=== PATIENT | female | born 1995 | race Caucasian/White ===

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

== ENCOUNTER 2017-03-08 17:27 | Inpatient (IN) | payer BC ==
[2017-03-08] MEDS ORDERED: Water For Irrigation,Sterile 1,000 ML Container IRR PRN (17:47)
[2017-03-08] MEDS ORDERED: Misoprostol 200 MCG Tab PO PRN (17:47)
[2017-03-08] MEDS ORDERED: Carboprost Tromethamine 250 MCG/1 ML Amp IM PRN (17:47)
[2017-03-08] MEDS ORDERED: Nalbuphine 10 MG/1 ML Vial IVPUSH PRN (17:47)
[2017-03-08] MEDS ORDERED: Sodium Chloride 0.9% 2.5 ML Syringe FLUSH PRN (17:47)
[2017-03-08] MEDS ORDERED: Sodium Chloride 0.9% 10 ML Syringe FLUSH PRN (17:47)
[2017-03-08] MEDS ORDERED: Ampicillin 2 GM in Sodium Chloride 0.9% 100 ML IV ONE (17:47)
[2017-03-08] MEDS ORDERED: Methylergonovine 0.2 MG/1 ML Amp IM PRN (17:47)
[2017-03-08] MEDS ORDERED: Lidocaine 1% 50 ML MDV INJECT PRN (17:47)
[2017-03-08] MEDS ORDERED: Terbutaline 1 MG/ML SDV SUBCUT PRN (17:50)
[2017-03-08] MEDS ORDERED: Misoprostol 25 MCG (1/4 of 100 MCG) Tab VAG PRN (17:50)
[2017-03-08] MEDS ORDERED: Misoprostol 25 MCG (1/4 of 100 MCG) Tab VAG SCH (18:00)
[2017-03-08] MEDS ORDERED: Oxytocin/Lactated Ringers 30 UNIT/500 ML BAG IV SCH (18:00)
[2017-03-08] MEDS ORDERED: Ondansetron 4 MG/2 ML SDV IVPUSH PRN (20:03)
[2017-03-08] MEDS: Ampicillin 1 GM in Sodium Chloride 0.9% 50 ML IV SCH (22:59)
[2017-03-09] MEDS: Butorphanol 1 MG/ML SDV IVPUSH PRN ×3 (02:43→08:56)
[2017-03-09] MEDS: Ampicillin 1 GM in Sodium Chloride 0.9% 50 ML IV SCH ×4 (02:45→14:30)
[2017-03-09] MEDS: Lactated Ringers 1,000 ML IV SCH ×2 (08:45→13:28)
[2017-03-09] MEDS ORDERED: fentaNYL 100 MCG/2 ML SDV ONE ×2 (12:54→12:57)
[2017-03-09] MEDS ORDERED: Ropivacaine 0.2% 2 MG/ML 20 ML SDV ONE (12:55)
[2017-03-09] MEDS ORDERED: Ropivacaine HCl/PF 100 ML ONE (12:57)
--- NOTE | 2017-03-09 13:47 | PCM.PREANE ---
Preanesthetic Assessment - Anesthesia/Transfusion/Family Hx Anesthesia History: Prior Anesthesia Without Reaction Family History of Anesthesia Reaction: No Transfusion History: No Prior Transfusion(s) Intubation History: Unknown - Review of Systems General: No Symptoms, Other (Labor contraction pain. Requesting info on, and placement of labor epidural.) Pulmonary: Other (History of asthma, well controlled with rescue inhaler) Cardiovascular: Other (Hx of aortic regurg, and aortic stenosis. Seen by local cardiology, cleared for epidural procedure) Gastrointestinal: No Symptoms, Other (morbidly obese with BMI of 43) Neurological: No Symptoms Other: Reports: Anxiety - Physical Assessment Pulse: 76 O2 Sat by Pulse Oximetry: 98 Respiratory Rate: 24 Blood Pressure: 128/66 Height: 5 ft 4 in Weight: 113.852 kg ASA Class: 2 Mental Status: Alert & Oriented x3 Airway Class: Mallampati = 3 Dentition: Reports: Normal Dentition Thyro-Mental Finger Breadths: 3 Mouth Opening Finger Breadths: 3 ROM/Head Extension: Other (obese neck) Lungs: Clear to Auscultation, Normal Respiratory Effort Cardiovascular: Regular Rate, Regular Rhythm - Lab Values: Laboratory Last Values WBC 7.24 K/uL (4.0-11.0) 03/08/17 18:04 RBC 4.18 M/uL (4.30-5.90) L 03/08/17 18:04 Hgb 11.4 g/dL (12.0-16.0) L 03/08/17 18:04 Hct 34.6 % (36.0-46.0) L 03/08/17 18:04 MCV 82.8 fL (80.0-98.0) 03/08/17 18:04 MCH 27.3 pg (27.0-32.0) 03/08/17 18:04 MCHC 32.9 g/dL (31.0-37.0) 03/08/17 18:04 RDW Std Deviation 45.4 fl (28.0-62.0) 03/08/17 18:04 RDW Coeff of Valerie 15 % (11.0-15.0) 03/08/17 18:04 Plt Count 205 K/uL (150-400) 03/08/17 18:04 MPV 12.10 fL (7.40-12.00) H 03/08/17 18:04 Nucleated RBC % 0.0 /100WBC 03/08/17 18:04 Nucleated RBCs # 0 K/uL 03/08/17 18:04 Blood Type O POSITIVE 03/08/17 18:04 Antibody Screen NEGATIVE 03/08/17 18:04 - Allergies Allergies/Adverse Reactions: Allergies Allergy/AdvReac Type Severity Reaction Status Date / Time No Known Allergies Allergy Verified 01/06/17 02:21 - Blood Blood Available: No - Acknowledgements Anesthesia Type Planned: Epidural Pt an Appropriate Candidate for the Planned Anesthesia: Yes Alternatives and Risks of Anesthesia Discussed w Pt/Guardian: Yes Pt/Guardian Understands and Agrees with Anesthesia Plan: Yes PreAnesthesia Questionnaire Cardiovascular History: Reports: Heart Murmur, Other (See Below) Other Cardiovascular History: aortic regurgitation Respiratory History: Reports: Asthma [employer]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: Musculoskeletal History: Reports: Back Pain, Chronic Endocrine/Metabolic History: Reports: Obesity/BMI 30+ Dermatologic History: Reports: Eczema, Psoriasis - Past Surgical History HEENT Surgical History: Reports: Other (See Below) Other HEENT Surgeries/Procedures: wisdom teeth extraction - SUBSTANCE USE Smoking Status *Q: Never Smoker Second Hand Smoke Exposure: No Recreational Drug Use History: No - CURRENT (IN HOUSE) MEDS Current Meds: Current Medications Butorphanol Tartrate (Stadol) 1 mg IVPUSH Q1H PRN PRN Reason: Pain Last Admin: 03/09/17 08:56 Dose: 1 mg Carboprost Tromethamine (Hemabate Ds) 250 mcg IM ASDIRECTED PRN PRN Reason: Post Hemorrhage Lactated Ringer's (Ringers, Lactated) 1,000 mls @ 150 mls/hr IV ASDIRECTED YASH Last Admin: 03/09/17 13:28 Dose: 150 mls/hr Oxytocin/Lactated Ringer's (Pitocin In Lr 30 Units/500 Ml) 30 unit in 500 mls @ 2 mls/hr IV TITRATE YASH; 2 MUNITS/MIN PRN Reason: Protocol Last Titration: 03/09/17 10:13 Dose: 6 munits/min, 6 mls/hr Ampicillin Sodium 1 gm/ Sodium (Chloride) 50 mls @ 100 mls/hr IV Q4H YASH Last Admin: 03/09/17 10:33 Dose: 100 mls/hr Lidocaine HCl (Xylocaine 1%) 50 ml INJECT .ONCE PRN PRN Reason: Laceration repair Methylergonovine Maleate (Methergine) 0.2 mg IM ASDIRECTED PRN PRN Reason: Post Hemorrhage Misoprostol (Cytotec) 200 mcg PO .ONCE PRN PRN Reason: Post Hemorrhage Misoprostol (Cytotec) 25 mcg VAG .ONCE YASH Last Admin: 03/08/17 18:47 Dose: 25 mcg Misoprostol (Cytotec) 25 mcg VAG Q4H PRN PRN Reason: Cervical Ripening Last Admin: 03/08/17 22:59 Dose: 25 mcg Nalbuphine HCl (Nubain) 10 mg IVPUSH Q1H PRN PRN Reason: Pain (severe 7-10) Ondansetron HCl (Zofran) 4 mg IVPUSH Q6H PRN PRN Reason: Nausea/Vomiting Last Admin: 03/09/17 05:59 Dose: 4 mg Sodium Chloride (Saline Flush) 10 ml FLUSH ASDIRECTED PRN PRN Reason: Keep Vein Open Sodium Chloride (Saline Flush) 2.5 ml FLUSH ASDIRECTED PRN PRN Reason: Keep Vein Open Sterile Water (Sterile Water For Irrigation) 1,000 ml IRR ASDIRECTED PRN PRN Reason: delivery Terbutaline Sulfate (Brethine) 0.25 mg SUBCUT ASDIRECTED PRN PRN Reason: Tacysystole Discontinued Medications Fentanyl (Sublimaze) Confirm Administered Dose 100 mcg .ROUTE .STK-MED ONE Stop: 03/09/17 12:55 Fentanyl (Sublimaze) Confirm Administered Dose 100 mcg .ROUTE .STK-MED ONE Stop: 03/09/17 12:58 Ampicillin Sodium 2 gm/ Sodium (Chloride) 100 mls @ 200 mls/hr IV ONETIME ONE Stop: 03/08/17 18:16 Last Admin: 03/08/17 18:43 Dose: 200 mls/hr Ropivacaine (Naropin 0.2%) Confirm Administered Dose 100 mls @ as directed .ROUTE .STK-MED ONE Stop: 03/09/17 12:58 Ropivacaine (Naropin 0.2%) Confirm Administered Dose 20 ml .ROUTE .STK-MED ONE Stop: 03/09/17 12:56
[2017-03-09] MEDS ORDERED: oxyCODONE 5 MG Tab PO PRN (15:24)
[2017-03-09] MEDS ORDERED: Docusate Sodium 100 MG Cap PO PRN (15:24)
[2017-03-09] MEDS ORDERED: Ibuprofen 400 MG Tab PO PRN (15:24)
[2017-03-09] MEDS ORDERED: Acetaminophen 500 MG Tab PO PRN ×2 (15:24)
[2017-03-09] MEDS ORDERED: Benzocaine/Menthol 20%-0.5% Spray 78 GM Cannister TOP PRN (15:24)
[2017-03-09] MEDS ORDERED: Bisacodyl 10 MG Supp RECTAL PRN (15:24)
[2017-03-09] MEDS ORDERED: Witch Hazel Medicated Pads 40/Jar TOP PRN (15:24)
[2017-03-09] MEDS ORDERED: Lanolin 100% Cream 7 GM Tube TOP PRN (15:24)
[2017-03-09] MEDS: Ibuprofen 800 MG Tab PO PRN (21:18)
[2017-03-10] MEDS: Ibuprofen 800 MG Tab PO PRN ×2 (05:29→11:03)
--- NOTE | 2017-03-10 08:10 | PCM.PNPP ---
<Malachi Carroll - Last Filed: 03/10/17 08:04> - General Info Date of Service: 03/10/17 Admission Dx/Problem (Free Text): 21 y.o. female, 40/1 EGA, IOL for past due dates, Subjective Update: Pt is doing well. Pain controlled with NSAIDs and tylenol. She did have a large amount of blood last night after standing up. Bleeding has decreased since then. Lochia is non foul smelling. without difficulty. Pt had no difficulty urinating. Has not had a bowel movement yet. Pt denies fever, chills , aches, shortness of breath, or chest pain. Functional Status: Reports: Pain Controlled, Tolerating Diet, Ambulating, Urinating - Review of Systems General: Reports: No Symptoms Pulmonary: Reports: No Symptoms Cardiovascular: Reports: No Symptoms Gastrointestinal: Reports: No Symptoms Genitourinary: Reports: No Symptoms - General Info Date of Service: 03/10/17 - Patient Data Vital Signs - Most Recent: Last Vital Signs Temp 36.3 C 03/10/17 04:30 Pulse 77 03/10/17 04:30 Resp 17 03/10/17 04:30 BP 128/58 L 03/10/17 04:30 Pulse Ox 96 03/10/17 04:30 Weight - Most Recent: 113.852 kg Lab Results - Last 24 Hours: Laboratory Results - last 24 hr 03/10/17 Range/Units 04:35 Hgb 9.3 L (12.0-16.0) g/dL Hct 29.4 L (36.0-46.0) % Med Orders - Current: Current Medications Acetaminophen (Tylenol Extra Strength) 500 mg PO Q4H PRN PRN Reason: Pain Acetaminophen (Tylenol Extra Strength) 1,000 mg PO Q4H PRN PRN Reason: Pain Benzocaine/Menthol (Dermoplast Pain Relief 20%-0.5% Anchor) 78 gm TOP ASDIRECTED PRN PRN Reason: Perineal Comfort Measure Last Admin: 03/09/17 21:23 Dose: 1 canister Bisacodyl (Dulcolax) 10 mg RECTAL .ONCE PRN PRN Reason: Constipation Carboprost Tromethamine (Hemabate Ds) 250 mcg IM ASDIRECTED PRN PRN Reason: Post Hemorrhage Docusate Sodium (Colace) 100 mg PO BID PRN PRN Reason: Constipation Last Admin: 03/09/17 21:18 Dose: 100 mg Emollient Ointment (Lansinoh Hpa) 0 gm TOP ASDIRECTED PRN PRN Reason: Sore Nipples Lactated Ringer's (Ringers, Lactated) 1,000 mls @ 150 mls/hr IV ASDIRECTED YASH Last Admin: 03/09/17 13:28 Dose: 150 mls/hr Oxytocin/Lactated Ringer's (Pitocin In Lr 30 Units/500 Ml) 30 unit in 500 mls @ 2 mls/hr IV TITRATE YASH; 2 MUNITS/MIN PRN Reason: Protocol Last Titration: 03/09/17 10:13 Dose: 6 munits/min, 6 mls/hr Ibuprofen (Motrin) 400 mg PO Q4H PRN PRN Reason: Pain Ibuprofen (Motrin) 800 mg PO Q6H PRN PRN Reason: Pain Last Admin: 03/10/17 05:29 Dose: 800 mg Methylergonovine Maleate (Methergine) 0.2 mg IM ASDIRECTED PRN PRN Reason: Post Hemorrhage Ondansetron HCl (Zofran) 4 mg IVPUSH Q6H PRN PRN Reason: Nausea/Vomiting Last Admin: 03/09/17 05:59 Dose: 4 mg Oxycodone HCl (Oxycodone) 5 mg PO Q2H PRN PRN Reason: Pain Sodium Chloride (Saline Flush) 2.5 ml FLUSH ASDIRECTED PRN PRN Reason: Keep Vein Open Witch Klarissa (Tucks) 1 pad TOP ASDIRECTED PRN PRN Reason: comfort care Last Admin: 03/09/17 21:22 Dose: 1 container Discontinued Medications Butorphanol Tartrate (Stadol) 1 mg IVPUSH Q1H PRN PRN Reason: Pain Last Admin: 03/09/17 08:56 Dose: 1 mg Fentanyl (Sublimaze) Confirm Administered Dose 100 mcg .ROUTE .STK-MED ONE Stop: 03/09/17 12:55 Last Admin: 03/09/17 23:56 Dose: Not Given Fentanyl (Sublimaze) Confirm Administered Dose 100 mcg .ROUTE .STK-MED ONE Stop: 03/09/17 12:58 Last Admin: 03/09/17 23:56 Dose: Not Given Ampicillin Sodium 2 gm/ Sodium (Chloride) 100 mls @ 200 mls/hr IV ONETIME ONE Stop: 03/08/17 18:16 Last Admin: 03/08/17 18:43 Dose: 200 mls/hr Ampicillin Sodium 1 gm/ Sodium (Chloride) 50 mls @ 100 mls/hr IV Q4H YASH Last Admin: 03/09/17 14:30 Dose: 100 mls/hr Ropivacaine (Naropin 0.2%) Confirm Administered Dose 100 mls @ as directed .ROUTE .STK-MED ONE Stop: 03/09/17 12:58 Last Admin: 03/09/17 23:56 Dose: Not Given Lidocaine HCl (Xylocaine 1%) 50 ml INJECT .ONCE PRN PRN Reason: Laceration repair Misoprostol (Cytotec) 200 mcg PO .ONCE PRN PRN Reason: Post Hemorrhage Misoprostol (Cytotec) 25 mcg VAG .ONCE YASH Last Admin: 03/08/17 18:47 Dose: 25 mcg Misoprostol (Cytotec) 25 mcg VAG Q4H PRN PRN Reason: Cervical Ripening Last Admin: 03/08/17 22:59 Dose: 25 mcg Nalbuphine HCl (Nubain) 10 mg IVPUSH Q1H PRN PRN Reason: Pain (severe 7-10) Ropivacaine (Naropin 0.2%) Confirm Administered Dose 20 ml .ROUTE .STK-MED ONE Stop: 03/09/17 12:56 Last Admin: 03/09/17 23:56 Dose: Not Given Sodium Chloride (Saline Flush) 10 ml FLUSH ASDIRECTED PRN PRN Reason: Keep Vein Open Sterile Water (Sterile Water For Irrigation) 1,000 ml IRR ASDIRECTED PRN PRN Reason: delivery Terbutaline Sulfate (Brethine) 0.25 mg SUBCUT ASDIRECTED PRN PRN Reason: Tacysystole - Infant Interaction Infant Disposition, : Gregory in Room with Family Infant Interaction: Holding Infant Feeding: Breastfed Infant; Nursed Well Support Person: Significant Other - Recovery Exam Fundal Tone: Firm Fundal Level: 1 Fingerbreadths Below Umbilicus Fundal Placement: Midline Lochia Amount: Small Lochia Color: Rubra/Red Perineum Description: Other (see below) Other Perinuem Description: 2nd degree laceration Episiotomy/Laceration: Approximated Bladder Status: Voiding Urinary Elimination: Voided - Exam General: Alert, Oriented Lungs: Clear to Auscultation, Normal Respiratory Effort. No: Rales, Rhonchi, Rub Cardiovascular: Regular Rate, Regular Rhythm. No: Murmurs, Gallops, Rubs GI/Abdominal Exam: Normal Bowel Sounds, Soft, Non-Tender (Uterus midling, firm, below umbilucus and mildly tender) Extremities: Normal Inspection - Problem List & Annotations (1) Vaginal delivery SNOMED Code(s): 496982079 Code(s): O80 - ENCOUNTER FOR FULL-TERM UNCOMPLICATED DELIVERY Status: Acute Current Visit: Yes - Problem List Review Problem List Initiated/Reviewed/Updated: Yes - Assessment Assessment:: 21 y.o. female, IOL for past due dates, , 2nd degree perineal laceration. Pain well controlled Urinating well well - Plan Plan:: Routine cares. Continue pain management. Continue to support frequent ambulation and . Plan for discharge today. <Mariajose Martinez - Last Filed: 03/10/17 09:43> - Patient Data Vital Signs - Most Recent: Last Vital Signs Temp 36.9 C 03/10/17 08:10 Pulse 65 03/10/17 08:10 Resp 20 03/10/17 08:10 BP 127/58 L 03/10/17 08:10 Pulse Ox 95 03/10/17 08:10 Lab Results - Last 24 Hours: Laboratory Results - last 24 hr 03/10/17 Range/Units 04:35 Hgb 9.3 L (12.0-16.0) g/dL Hct 29.4 L (36.0-46.0) % Med Orders - Current: Current Medications Acetaminophen (Tylenol Extra Strength) 500 mg PO Q4H PRN PRN Reason: Pain Acetaminophen (Tylenol Extra Strength) 1,000 mg PO Q4H PRN PRN Reason: Pain Benzocaine/Menthol (Dermoplast Pain Relief 20%-0.5% Anchor) 78 gm TOP ASDIRECTED PRN PRN Reason: Perineal Comfort Measure Last Admin: 03/09/17 21:23 Dose: 1 canister Bisacodyl (Dulcolax) 10 mg RECTAL .ONCE PRN PRN Reason: Constipation Carboprost Tromethamine (Hemabate Ds) 250 mcg IM ASDIRECTED PRN PRN Reason: Post Hemorrhage Docusate Sodium (Colace) 100 mg PO BID PRN PRN Reason: Constipation Last Admin: 03/09/17 21:18 Dose: 100 mg Emollient Ointment (Lansinoh Hpa) 0 gm TOP ASDIRECTED PRN PRN Reason: Sore Nipples Lactated Ringer's (Ringers, Lactated) 1,000 mls @ 150 mls/hr IV ASDIRECTED YASH Last Admin: 03/09/17 13:28 Dose: 150 mls/hr Oxytocin/Lactated Ringer's (Pitocin In Lr 30 Units/500 Ml) 30 unit in 500 mls @ 2 mls/hr IV TITRATE YASH; 2 MUNITS/MIN PRN Reason: Protocol Last Titration: 03/09/17 10:13 Dose: 6 munits/min, 6 mls/hr Ibuprofen (Motrin) 400 mg PO Q4H PRN PRN Reason: Pain Ibuprofen (Motrin) 800 mg PO Q6H PRN PRN Reason: Pain Last Admin: 03/10/17 05:29 Dose: 800 mg Methylergonovine Maleate (Methergine) 0.2 mg IM ASDIRECTED PRN PRN Reason: Post Hemorrhage Ondansetron HCl (Zofran) 4 mg IVPUSH Q6H PRN PRN Reason: Nausea/Vomiting Last Admin: 03/09/17 05:59 Dose: 4 mg Oxycodone HCl (Oxycodone) 5 mg PO Q2H PRN PRN Reason: Pain Sodium Chloride (Saline Flush) 2.5 ml FLUSH ASDIRECTED PRN PRN Reason: Keep Vein Open Witch Klarissa (Tucks) 1 pad TOP ASDIRECTED PRN PRN Reason: comfort care Last Admin: 03/09/17 21:22 Dose: 1 container Discontinued Medications Butorphanol Tartrate (Stadol) 1 mg IVPUSH Q1H PRN PRN Reason: Pain Last Admin: 03/09/17 08:56 Dose: 1 mg Fentanyl (Sublimaze) Confirm Administered Dose 100 mcg .ROUTE .K-MED ONE Stop: 03/09/17 12:55 Last Admin: 03/09/17 23:56 Dose: Not Given Fentanyl (Sublimaze) Confirm Administered Dose 100 mcg .ROUTE .STK-MED ONE Stop: 03/09/17 12:58 Last Admin: 03/09/17 23:56 Dose: Not Given Ampicillin Sodium 2 gm/ Sodium (Chloride) 100 mls @ 200 mls/hr IV ONETIME ONE Stop: 03/08/17 18:16 Last Admin: 03/08/17 18:43 Dose: 200 mls/hr Ampicillin Sodium 1 gm/ Sodium (Chloride) 50 mls @ 100 mls/hr IV Q4H YASH Last Admin: 03/09/17 14:30 Dose: 100 mls/hr Ropivacaine (Naropin 0.2%) Confirm Administered Dose 100 mls @ as directed .ROUTE .STK-MED ONE Stop: 03/09/17 12:58 Last Admin: 03/09/17 23:56 Dose: Not Given Lidocaine HCl (Xylocaine 1%) 50 ml INJECT .ONCE PRN PRN Reason: Laceration repair Misoprostol (Cytotec) 200 mcg PO .ONCE PRN PRN Reason: Post Hemorrhage Misoprostol (Cytotec) 25 mcg VAG .ONCE YASH Last Admin: 03/08/17 18:47 Dose: 25 mcg Misoprostol (Cytotec) 25 mcg VAG Q4H PRN PRN Reason: Cervical Ripening Last Admin: 03/08/17 22:59 Dose: 25 mcg Nalbuphine HCl (Nubain) 10 mg IVPUSH Q1H PRN PRN Reason: Pain (severe 7-10) Ropivacaine (Naropin 0.2%) Confirm Administered Dose 20 ml .ROUTE .STK-MED ONE Stop: 03/09/17 12:56 Last Admin: 03/09/17 23:56 Dose: Not Given Sodium Chloride (Saline Flush) 10 ml FLUSH ASDIRECTED PRN PRN Reason: Keep Vein Open Sterile Water (Sterile Water For Irrigation) 1,000 ml IRR ASDIRECTED PRN PRN Reason: delivery Terbutaline Sulfate (Brethine) 0.25 mg SUBCUT ASDIRECTED PRN PRN Reason: Tacysystole - My Orders Last 24 Hours: My Active Orders 03/09/17 15:24 May Shower [RC] ASDIRECTED Up ad Barbara [RC] ASDIRECTED Vital Signs [RC] PER UNIT ROUTINE Acetaminophen [Tylenol Extra Strength] 1,000 mg PO Q4H PRN Acetaminophen [Tylenol Extra Strength] 500 mg PO Q4H PRN Benzocaine/Menthol [Dermoplast Pain Relief 20%-0.5% Anchor] 78 gm TOP ASDIRECTED PRN Bisacodyl [Dulcolax] 10 mg RECTAL .ONCE PRN Docusate Sodium [Colace] 100 mg PO BID PRN Ibuprofen [Motrin] 400 mg PO Q4H PRN Ibuprofen [Motrin] 800 mg PO Q6H PRN Lanolin [Lansinoh HPA] See Dose Instructions TOP ASDIRECTED PRN Witch Klarissa [Tucks] 1 pad TOP ASDIRECTED PRN oxyCODONE 5 mg PO Q2H PRN Assess Lochia [WOMSER] Per Unit Routine Assess Uterine Involution [WOMSER] Per Unit Routine Breast Pump [WOMSER] Per Unit Routine Ice Therapy [OM.PC] Per Unit Routine Perineal Care [OM.PC] Per Unit Routine Peripheral IV Discontinue [OM.PC] Routine Sitz Bath [OM.PC] Per Unit Routine 03/09/17 Dinner Regular Diet [DIET] - Plan Plan:: Patient seen and examined--have encouraged her to stay today to work with , but she feels very strongly she wants to go home. is going well overall. Her vital signs are stable and hemoglobin is stable. Discharge instructions reviewed. Infection and bleeding warnings reviewed. [facility] up at [facility] 2 and 6 weeks. 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
--- NOTE | 2017-03-10 09:30 | PCM48HPAN ---
Post Anesthesia Note - EVALUATION WITHIN 48HRS OF ANESTHETIC Vital Signs in Normal Range: Yes Patient Participated in Evaluation: Yes Respiratory Function Stable: Yes Airway Patent: Yes Cardiovascular Function Stable: Yes Hydration Status Stable: Yes Pain Control Satisfactory: Yes Nausea and Vomiting Control Satisfactory: Yes Mental Status Recovered: Yes
--- NOTE | 2017-03-10 10:39 | OR ---
SURGEON: Mariajose Martinez M.D. DATE OF PROCEDURE: 03/09/2017 PREOPERATIVE DIAGNOSES: 1. A 40-week, 3-day intrauterine . 2. Maternal aortic valve regurgitation. 3. Group beta strep positive. POSTOPERATIVE DIAGNOSES: 1. A 40-week, 3-day intrauterine . 2. Maternal aortic valve regurgitation. 3. Group beta strep positive. PROCEDURE: Spontaneous vaginal delivery, second-degree midline laceration and repair. INSPECTOR MATERIALS AND PROCESSES: [employer], MS4. ESTIMATED BLOOD LOSS: 300 mL. ANESTHESIA: Epidural. COMPLICATIONS: None. FINDINGS: Viable female, score 7 at 1 minute, 8 at 5 minute. Weight of 3690 g. Spontaneous delivery, intact placenta, 3-vessel cord. DISPOSITION: Infant to nursery, mom in LDRP. DESCRIPTION OF PROCEDURE: Bessie is a 21-year-old, G1, P0, at 40 weeks and 3 days' gestational age, who was admitted on the evening of 03/08/2017 for scheduled induction of labor, due to term gestation with maternal history of cardiac valvular disease. She has been followed by Cardiology during the . Please see notes. The patient was admitted, routine labs drawn, had reactive NST and underwent Cytotec ripening. She is also on ampicillin prophylaxis for group beta strep. Prophylaxis, which will also help cover cardiac valve status. The patient responded nicely to the Cytotec, and the following morning, she had spontaneous rupture of membranes, clear fluid and, shortly before 0900 hours, was found to be 5 cm, 90% effaced, -1 station. She continued to labor throughout the morning hours and received IV narcotic; however, as she was starting to transition and moving closer to 8 cm, we advised against receiving further IV narcotics. As discussed in the clinic, she ultimately did undergo regional anesthesia per an epidural to help with pain control, and dissipate her pushing efforts until at the lower station, in order to decrease the amount of Valsalva against the heart. The patient progressed nicely and became comfortable with the epidural, and shortly after 1400 hours, she was found to be complete, 100% effaced, at +1 station. She was allowed to continue to labor, and shortly before 1500 hours, I was called, with patient being +3 station. heart tones remained category 1. Upon my arrival, the patient was placed in modified dorsolithotomy position and was prepped and draped in the usual aseptic manner. She continued with pushing efforts and was able to deliver infant's head atraumatically, spontaneously, followed by anterior shoulder, posterior shoulder, and remainder of the body without difficulty. The infant's oropharynx, nares bulb suctioned. Cord clamped x2 and cut. was handed off to the mother with attending nursing staff at her side. Cord arterial, cord venous, cord blood sampling was obtained. Light suprapubic pressure was applied while the placenta was delivered spontaneously intact. Vigorous fundal uterine massage was applied while 30 units of Pitocin was delivered in 500 mL IV fluid. Upon inspection of cervix, vaginal sidewalls, and perineum, there was found to be a second-degree midline laceration. This was repaired using 3-0 Polysorb in the usual fashion. Uterus remained firm. Hemostasis evident. Sponge count was correct. The patient remained in LDRP. Her initial blood pressures are normal, and she is feeling well. She denies any chest pain and shortness of breath. We will continue to monitor her closely. Sponge count and needle count were correct. Hemostasis was evident. The patient remained in LDRP. Infant to nursery. QUIQUE / KAYE /[id number]
[2017-03-10 17:02] VITALS: BP 125/58
== END 2017-03-10 18:05 | disposition home or self-care (01) | DRG 560 ==
LOC: MW.OBCHECK 17:27 → MW.OB 17:27 → MW.OBCHECK 17:47 → OBSVTOIN 03-09 14:59 → MW.OB 03-09 21:07
PROVIDERS: ADMIT Obstetrics & Gynecology; ATTEND Obstetrics & Gynecology
PROC: 10E0XZZ Delivery of Products of Conception, External Approach (ICD-10-PCS; principal; 2017-03-09)
PROC: 0KQM0ZZ Repair Perineum Muscle, Open Approach (ICD-10-PCS; 2017-03-09)
PROC: 3E0P7GC Introduction of Other Therapeutic Substance into Female Reproductive, Via Natural or Artificial Opening (ICD-10-PCS; 2017-03-09)
DX: O48.0 Post-term pregnancy (principal); O99.824 Streptococcus B carrier state complicating childbirth; I35.1 Nonrheumatic aortic (valve) insufficiency; Z3A.40 40 weeks gestation of pregnancy; Z37.0 Single live birth
CPT/HCPCS: 36415; 59025; 85014; 85018; 85027; 86850; 86900; 86901; A9270-GY; J0290; J0595; J2405; J2795; J3010; J7030; J7050; J7120

== ENCOUNTER 2020-05-30 12:46 | Emergency (ER) | payer BC ==
--- NOTE | 2020-05-30 13:39 | EDM.PDOC ---
ED HPI GENERAL MEDICAL PROBLEM - General Chief Complaint: Lower Extremity Injury/Pain Stated Complaint: POSSIBLE FOOT FRACTURE Time Seen by Provider: 05/30/20 13:24 Source of Information: Reports: Patient History Limitations: Reports: No Limitations - History of Present Illness INITIAL COMMENTS - FREE TEXT/NARRATIVE: Patient is a 25-year-old female who presents today for left foot and ankle pain. Patient states she was walking up steps when she missed one of them causing her to twist her ankle laterally. Patient is able to ambulate but with a lot of pain. Patient has pain to the back and lateral side of her foot. Patient denies any other injuries from the falls or any other complaints. L ankle and foot Pain Score (Numeric/FACES): 8 - Related Data Allergies Allergy/AdvReac Type Severity Reaction Status Date / Time No Known Allergies Allergy Verified 05/30/20 13:23 Home Meds: Home Meds . [No Known Home Meds] 05/30/20 [History] Past Medical History HEENT History: Reports: None Cardiovascular History: Reports: Heart Murmur, Other (See Below) Other Cardiovascular History: aortic regurgitation Respiratory History: Reports: Asthma [employer] History: Reports: Musculoskeletal History: Reports: Back Pain, Chronic Endocrine/Metabolic History: Reports: Obesity/BMI 30+ Dermatologic History: Reports: Eczema, Psoriasis - Past Surgical History HEENT Surgical History: Reports: Oral Surgery, Other (See Below) Other HEENT Surgeries/Procedures: wisdom teeth extraction Cardiovascular Surgical History: Reports: None Respiratory Surgical History: Reports: None Endocrine Surgical History: Reports: None Musculoskeletal Surgical History: Reports: None Dermatological Surgical History: Reports: None Social & Family History - Family History Family Medical History: No Pertinent Family History HEENT: Reports: Cataract, Glaucoma Cardiac: Reports: Heart Murmur, High Cholesterol, Hypertension, Other (See Below) Other Cardiac Family History: heart disease Respiratory: Reports: Asthma GI: Reports: Cholelithiasis : Reports: Dialysis OBGYN: Reports: Endocrine/Metabolic: Reports: Diabetes, type II Oncologic: Reports: Other (See Below) Other Oncologic Family History: ewings sarcoma - Tobacco Use Tobacco Use Status *Q: Never Tobacco User Second Hand Smoke Exposure: No - Caffeine Use Caffeine Use: Reports: None - Recreational Drug Use Recreational Drug Use: No Review of Systems - Review of Systems Review Of Systems: See Below Constitutional: Reports: No Symptoms Eyes: Reports: No Symptoms Ears: Reports: No Symptoms Nose: Reports: No Symptoms Mouth/Throat: Reports: No Symptoms Respiratory: Reports: No Symptoms Cardiovascular: Reports: No Symptoms GI/Abdominal: Reports: No Symptoms Genitourinary: Reports: No Symptoms Musculoskeletal: Reports: Foot Pain Skin: Reports: No Symptoms Neurological: Reports: No Symptoms Psychiatric: Reports: No Symptoms ED EXAM, GENERAL - Physical Exam Exam: See Below Exam Limited By: No Limitations General Appearance: Alert, No Apparent Distress Respiratory/Chest: No Respiratory Distress, Lungs Clear Cardiovascular: Normal Peripheral Pulses Peripheral Pulses: 2+: Dorsalis Pedis (L), Dorsalis Pedis (R) Extremities: Normal Inspection, Normal Range of Motion. No: Non-Tender (tenderness to dorsal lateral left foot), Joint Swelling, Limited Range of Motion, Redness Course - Vital Signs Last Recorded V/S: Last Vital Signs Temp 96.8 F L 05/30/20 13:12 Pulse 74 05/30/20 15:15 Resp 17 05/30/20 15:15 BP 123/81 05/30/20 15:15 Pulse Ox 97 05/30/20 15:15 - Orders/Labs/Meds Orders: Active Orders 24 hr Category Date Time Status DME for Discharge [COMM] Stat Oth 05/30/20 14:58 Ordered DME for Discharge [COMM] Stat Oth 05/30/20 14:59 Ordered - Re-Assessments/Exams Free Text/Narrative Re-Assessment/Exam: 05/30/20 14:59 And x-rays are negative for fractures. Patient be placed in Darrin wrap and given crutches. What you are ordering Left foot Aircast and crutches Why you are ordering it Sprain difficulty ambulating How it will benefit patient With ambulating at home How long is patient to use it 7-14 days Departure - Departure Time of Disposition: 15:01 Disposition: Home, Self-Care 01 Condition: Good Clinical Impression: Ankle sprain - Discharge Information *PRESCRIPTION DRUG MONITORING PROGRAM REVIEWED*: Not Applicable *COPY OF PRESCRIPTION DRUG MONITORING REPORT IN PATIENT MARCEL: Not Applicable Instructions: Crutch Use, Adult, [id number], Ankle Sprain, [id number] Referrals: Carolyne Fuentes DO [Primary Care Provider] - Forms: ED Department Discharge Additional Instructions: The following information is given to patients seen in the emergency department who are being discharged to home. This information is to outline your options for follow-up care. We provide all patients seen in our emergency department with a follow-up referral. The need for follow-up, as well as the timing and circumstances, are variable depending upon the specifics of your emergency department visit. If you don't have a primary care physician on staff, we will provide you with a referral. We always advise you to contact your personal physician following an emergency department visit to inform them of the circumstance of the visit and for follow-up with them and/or the need for any referrals to a consulting specialist. The emergency department will also refer you to a specialist when appropriate. This referral assures that you have the opportunity for follow-up care with a specialist. All of these measure are taken in an effort to provide you with optimal care, which includes your follow-up. Under all circumstances we always encourage you to contact your private physician who remains a resource for coordinating your care. When calling for follow-up care, please make the office aware that this follow-up is from your recent emergency room visit. If for any reason you are refused follow-up, please contact the [facility] Emergency Department at and asked to speak to the emergency department charge nurse. Please follow up with your primary care physician. If you do not have a primary care physician, see below: [facility] [address] [place] [id number] [facility] [address] [place] [id number] Follow with your primary care physician. If the pain is not better next 7 to 10 days please return to the ED for more imaging or tests. Sepsis Event Note (ED) - Evaluation Sepsis Screening Result: No Definite Risk - Focused Exam Vital Signs: Vital Signs Temp Pulse Resp BP Pulse Ox 05/30/20 15:15 74 17 123/81 97 05/30/20 13:12 96.8 F L 79 17 139/64 98 - My Orders Last 24 Hours: My Active Orders 05/30/20 14:58 DME for Discharge [COMM] Stat 05/30/20 14:59 DME for Discharge [COMM] Stat - Assessment/Plan Last 24 Hours: My Active Orders 05/30/20 14:58 DME for Discharge [COMM] Stat 05/30/20 14:59 DME for Discharge [COMM] Stat Plan: Patient is a 25-year-old female presents today for left ankle and foot pain. Patient twisted her ankle while walking up steps. Patient has some tenderness to the dorsal lateral side will obtain x-rays and reassess.
--- NOTE | 2020-05-30 14:35 | CR ---
Indication: Pain Technique: Examination consists of three views of the left ankle and three views of the left foot Comparison: None Findings: Bone mineral density is normal. There is no lytic or blastic lesion, fracture or dislocation identified. The ankle mortise and syndesmosis appear intact. There is a tiny plantar calcaneal spur. No arthritic finding. No gas within soft tissues and no radiopaque foreign body. Impression: Aside from a tiny plantar calcaneal spur, the plain film examination of the left ankle and left foot is normal Dictated by Luiz Frankel MD @ May 30 2020 2:32PM Signed by Dr. Luiz Frankel @ May 30 2020 2:35PM
[2020-05-30 15:19] VITALS: BP 123/81; PULSE 74
== END 2020-05-30 15:15 | disposition home or self-care (01) ==
LOC: MW.ED 12:46
DX: S93.402A Sprain of unspecified ligament of left ankle, initial encounter (principal); J45.909 Unspecified asthma, uncomplicated; E66.9 Obesity, unspecified; Z68.42 Body mass index [BMI] 45.0-49.9, adult; X50.1XXA Overexertion from prolonged static or awkward postures, initial encounter
CPT/HCPCS: 73610-26-LT; 73610-LT; 73630-26-LT; 73630-LT; 99283

== ENCOUNTER 2021-06-12 12:29 | Inpatient (IN) | payer BC ==
[2021-06-12] MEDS ORDERED: Sodium Chloride 0.9% 10 ML Syringe FLUSH PRN (13:01)
[2021-06-12] MEDS ORDERED: Sodium Chloride 0.9% 2.5 ML Syringe FLUSH PRN (13:01)
--- NOTE | 2021-06-12 13:06 | EDM.PDOC ---
ED HPI GENERAL MEDICAL PROBLEM - General Chief Complaint: Respiratory Problem Stated Complaint: FLU Time Seen by Provider: 06/12/21 12:37 - History of Present Illness INITIAL COMMENTS - FREE TEXT/NARRATIVE: 26-year-old female with a history of mild asthma only occasionally bothers her as well as a history of aortic insufficiency is presenting with difficulty breathing. Patient fell ill 9 days ago with cough malaise shortness of breath. Her mother had tested negative for Covid and positive for flu a she tested positive for flu a 2 days later no Covid test was done at that time. She presents today due to nausea and worsening shortness of breath. She also reports chest pain with deep breaths and significant cough. - Related Data Allergies Allergy/AdvReac Type Severity Reaction Status Date / Time No Known Allergies Allergy Verified 06/12/21 13:52 Home Meds: Home Meds . [No Known Home Meds] 05/30/20 [History] Past Medical History HEENT History: Reports: None Cardiovascular History: Reports: Heart Murmur, Other (See Below) Other Cardiovascular History: aortic regurgitation Respiratory History: Reports: Asthma [employer] History: Reports: Musculoskeletal History: Reports: Back Pain, Chronic Endocrine/Metabolic History: Reports: Obesity/BMI 30+ Dermatologic History: Reports: Eczema, Psoriasis - Past Surgical History HEENT Surgical History: Reports: Oral Surgery, Other (See Below) Respiratory Surgical History: Reports: None Endocrine Surgical History: Reports: None Social & Family History - Family History Family Medical History: No Pertinent Family History HEENT: Reports: Cataract, Glaucoma Cardiac: Reports: Heart Murmur, High Cholesterol, Hypertension, Other (See Below) Other Cardiac Family History: heart disease Respiratory: Reports: Asthma GI: Reports: Cholelithiasis : Reports: Dialysis OBGYN: Reports: Endocrine/Metabolic: Reports: Diabetes, type II Oncologic: Reports: Other (See Below) Other Oncologic Family History: ewings sarcoma - Caffeine Use Caffeine Use: Reports: None ED ROS GENERAL - Review of Systems Review Of Systems: See Below Free Text/Narrative/Comment: General: Per HPI Skin: No rash. Eyes: No vision problems. ENT: No sore throat. Neck: No neck stiffness. Respiratory: Per HPI Cardiac: Per HPI Gastrointestinal: Per HPI Urinary: No dysuria. Musculoskeletal: No myalgias/arthralgias. Neurologic: No headache. ED EXAM, GENERAL - Physical Exam Exam: See Below Free Text/Narrative:: General Appearance: No acute distress, appears comfortable Skin: No rash HEENT: Normocephalic/atraumatic, sclera anicteric, mucous membranes moist Neck: Normal range of motion Chest and Lungs: Bilateral breath sounds, clear to auscultation at the apices basilar exam compromised by body habitus Cardiovascular: Tachycardic rate regular rhythm intact distal perfusion Abdomen: Soft, non-tender Musculoskeletal: No edema or tenderness Neurologic: Awake, alert, no obvious deficits, moving all extremities Psychiatric: Appropriate, cooperative #1 Interpretation EKG Date: 06/12/21 Time: 13:04 EKG Interpretation Comments: Sinus tachycardia rate of 102 findings consistent with LVH but no acute ischemia Course - Vital Signs Last Recorded V/S: Last Vital Signs Temp 99.6 F 06/12/21 13:00 Pulse 99 06/12/21 16:28 Resp 20 06/12/21 15:09 BP 100/64 06/12/21 16:28 Pulse Ox 95 06/12/21 16:28 - Orders/Labs/Meds Orders: Active Orders 24 hr Category Date Time Status Admission Status [Patient Status] [ADT] Stat ADT 06/12/21 16:37 Active Antiembolic Devices [RC] PER UNIT ROUTINE Care 06/12/21 16:27 Active Oxygen Therapy [RC] PRN Care 06/12/21 16:26 Active RT Post Treatment Assessment [RC] Click to Edit Care 06/12/21 16:29 Active RT Pre-Treatment Assessment [RC] Click to Edit Care 06/12/21 16:29 Active Up ad Barbara [RC] ASDIRECTED Care 06/12/21 16:26 Active VTE/DVT Education [RC] PER UNIT ROUTINE Care 06/12/21 16:26 Active Vital Signs [RC] Q4H Care 06/12/21 16:26 Active Regular Diet [DIET] Diet 06/12/21 Breakfast Active CBC WITH AUTO DIFF [HEME] AM Lab 06/13/21 05:11 Ordered CBC WITH AUTO DIFF [HEME] AM Lab 06/14/21 05:11 Ordered CBC WITH AUTO DIFF [HEME] AM Lab 06/15/21 05:11 Ordered CBC WITH AUTO DIFF [HEME] AM Lab 06/16/21 05:11 Ordered CBC WITH AUTO DIFF [HEME] AM Lab 06/17/21 05:11 Ordered COMPREHENSIVE METABOLIC PN,CMP [CHEM] AM Lab 06/13/21 05:11 Ordered COMPREHENSIVE METABOLIC PN,CMP [CHEM] AM Lab 06/14/21 05:11 Ordered COMPREHENSIVE METABOLIC PN,CMP [CHEM] AM Lab 06/15/21 05:11 Ordered COMPREHENSIVE METABOLIC PN,CMP [CHEM] AM Lab 06/16/21 05:11 Ordered COMPREHENSIVE METABOLIC PN,CMP [CHEM] AM Lab 06/17/21 05:11 Ordered CRP [C-REACTIVE PROTEIN] [CHEM] Stat Lab 06/12/21 16:39 Ordered PROCALCITONIN [REF] Routine Lab 06/12/21 16:39 Ordered Albuterol/Ipratropium [Combivent Respimat] Med 06/12/21 18:00 Active 1 gm INH QID Azithromycin [Zithromax] Med 06/12/21 16:45 Active 500 mg IV Q24H Enoxaparin [Lovenox] Med 06/12/21 21:00 Active 40 mg SUBCUT Q12HR Remdesivir 100 mg Med 06/12/21 16:30 Active Sodium Chloride 0.9% [Normal Saline AdvBag] 100 ml IV Q24H Sodium Chloride 0.9% [Saline Flush] Med 06/12/21 13:01 Active 10 ml FLUSH ASDIRECTED PRN Sodium Chloride 0.9% [Saline Flush] Med 06/12/21 13:01 Active 2.5 ml FLUSH ASDIRECTED PRN cefTRIAXone [Rocephin in Dextrose,Iso-Osm 1 GM/50 ML] 1 Med 06/12/21 16:45 Active gm Premix Bag 1 bag IV Q24H dexAMETHasone Med 06/12/21 16:30 Active 6 mg PO Q24H Saline Lock Insert [OM.PC] Stat Oth 06/12/21 13:01 Ordered Sequential Compression Device [OM.PC] Per Unit Routine Oth 06/12/21 16:26 Ordered Resuscitation Status Routine Resus Stat 06/12/21 16:26 Ordered Medication Orders Albuterol/Ipratropium (Albuterol/Ipratropium 4 Gm Inhalation [place]) 1 gm INH QID YASH Azithromycin (Azithromycin 500 Mg Vial) 500 mg IV Q24H YASH Dexamethasone (Dexamethasone 4 Mg Tab) 6 mg PO Q24H YASH Enoxaparin Sodium (Enoxaparin 40 Mg/0.4 Ml Syringe) 40 mg SUBCUT Q12HR YASH Remdesivir 100 mg/ Sodium (Chloride) 100 mls @ 100 mls/hr IV Q24H YASH Stop: 06/15/21 17:29 Ceftriaxone Sodium/Dextrose 1 (gm/ Premix) 50 mls @ 100 mls/hr IV Q24H YASH Sodium Chloride (Sodium Chloride 0.9% 10 Ml Syringe) 10 ml FLUSH ASDIRECTED PRN PRN Reason: Keep Vein Open Last Admin: 06/12/21 15:08 Dose: 10 ml Documented by: SAHRA Sodium Chloride (Sodium Chloride 0.9% 2.5 Ml Syringe) 2.5 ml FLUSH ASDIRECTED PRN PRN Reason: Keep Vein Open Last Admin: 06/12/21 15:08 Dose: 2.5 ml Documented by: SAHRA Labs: Laboratory Tests 06/12/21 06/12/21 06/12/21 Range/Units 12:40 12:45 12:45 WBC 2.67 L (4.0-11.0) K/uL RBC 4.60 (4.30-5.90) M/uL Hgb 13.7 (12.0-16.0) g/dL Hct 40.4 (36.0-46.0) % MCV 87.8 (80.0-98.0) fL MCH 29.8 (27.0-32.0) pg MCHC 33.9 (31.0-37.0) g/dL RDW Std Deviation 44.7 (28.0-62.0) fl RDW Coeff of Valerie 14 (11.0-15.0) % Plt Count 200 (150-400) K/uL MPV 12.10 H (7.40-12.00) fL Neut % (Auto) 65.2 (48.0-80.0) % Lymph % (Auto) 25.8 (16.0-40.0) % Benson % (Auto) 9.0 (0.0-15.0) % Eos % (Auto) 0.0 (0.0-7.0) % Baso % (Auto) 0.0 (0.0-1.5) % Neut # (Auto) 1.7 (1.4-5.7) K/uL Lymph # (Auto) 0.7 (0.6-2.4) K/uL Benson # (Auto) 0.2 (0.0-0.8) K/uL Eos # (Auto) 0.0 (0.0-0.7) K/uL Baso # (Auto) 0.0 (0.0-0.1) K/uL Nucleated RBC % 0.0 /100WBC Nucleated RBCs # 0 K/uL Sodium 136 (136-145) mmol/L Potassium 3.6 (3.5-5.1) mmol/L Chloride 97 L (98-107) mmol/L Carbon Dioxide 26.2 (21.0-32.0) mmol/L BUN 6 L (7.0-18.0) mg/dL Creatinine 0.8 (0.6-1.0) mg/dL Est Cr Clr Drug Dosing TNP Estimated GFR (MDRD) > 60.0 ml/min Glucose 125 H (74-106) mg/dL Lactic Acid (0.4-2.0) mmol/L Calcium 8.8 (8.5-10.1) mg/dL Total Bilirubin 0.4 (0.2-1.0) mg/dL AST 201 H (15-37) IU/L ALT 316 H (14-63) IU/L Alkaline Phosphatase 65 (46-116) U/L Troponin I < 0.050 (0.000-0.056) ng/mL B-Natriuretic Peptide (<100) PG/ML Total Protein 7.5 (6.4-8.2) g/dL Albumin 3.3 L (3.4-5.0) g/dL Globulin 4.2 H (2.6-4.0) g/dL Albumin/Globulin Ratio 0.8 L (0.9-1.6) Influenza Type A RNA NEGATIVE (NEGATIVE) Influenza Type B RNA NEGATIVE (NEGATIVE) SARS-CoV-2 RNA (ELIGIO) POSITIVE H (NEGATIVE) 06/12/21 06/12/21 Range/Units 12:45 13:40 WBC (4.0-11.0) K/uL RBC (4.30-5.90) M/uL Hgb (12.0-16.0) g/dL Hct (36.0-46.0) % MCV (80.0-98.0) fL MCH (27.0-32.0) pg MCHC (31.0-37.0) g/dL RDW Std Deviation (28.0-62.0) fl RDW Coeff of Valerie (11.0-15.0) % Plt Count (150-400) K/uL MPV (7.40-12.00) fL Neut % (Auto) (48.0-80.0) % Lymph % (Auto) (16.0-40.0) % Benson % (Auto) (0.0-15.0) % Eos % (Auto) (0.0-7.0) % Baso % (Auto) (0.0-1.5) % Neut # (Auto) (1.4-5.7) K/uL Lymph # (Auto) (0.6-2.4) K/uL Benson # (Auto) (0.0-0.8) K/uL Eos # (Auto) (0.0-0.7) K/uL Baso # (Auto) (0.0-0.1) K/uL Nucleated RBC % /100WBC Nucleated RBCs # K/uL Sodium (136-145) mmol/L Potassium (3.5-5.1) mmol/L Chloride (98-107) mmol/L Carbon Dioxide (21.0-32.0) mmol/L BUN (7.0-18.0) mg/dL Creatinine (0.6-1.0) mg/dL Est Cr Clr Drug Dosing Estimated GFR (MDRD) ml/min Glucose (74-106) mg/dL Lactic Acid 1.3 (0.4-2.0) mmol/L Calcium (8.5-10.1) mg/dL Total Bilirubin (0.2-1.0) mg/dL AST (15-37) IU/L ALT (14-63) IU/L Alkaline Phosphatase (46-116) U/L Troponin I (0.000-0.056) ng/mL B-Natriuretic Peptide 8 (<100) PG/ML Total Protein (6.4-8.2) g/dL Albumin (3.4-5.0) g/dL Globulin (2.6-4.0) g/dL Albumin/Globulin Ratio (0.9-1.6) Influenza Type A RNA (NEGATIVE) Influenza Type B RNA (NEGATIVE) SARS-CoV-2 RNA (ELIGIO) (NEGATIVE) Meds: Medications Generic Name Dose Route Start Last Admin Trade Name Bryanq PRN Reason Stop Dose Admin Albuterol/Ipratropium 1 gm 06/12/21 18:00 Albuterol/Ipratropium 4 Gm Inhalation [place] INH QID YASH Azithromycin 500 mg 06/12/21 16:45 Azithromycin 500 Mg Vial IV Q24H YASH Dexamethasone 6 mg 06/12/21 16:30 Dexamethasone 4 Mg Tab PO Q24H YASH Enoxaparin Sodium 40 mg 06/12/21 21:00 Enoxaparin 40 Mg/0.4 Ml Syringe SUBCUT Q12HR YASH Remdesivir 100 mg/ Sodium 100 mls @ 100 mls/hr 06/12/21 16:30 Chloride IV 06/15/21 17:29 Q24H YASH Ceftriaxone Sodium/Dextrose 1 50 mls @ 100 mls/hr 06/12/21 16:45 gm/ Premix IV Q24H [facility] Sodium Chloride 10 ml 06/12/21 13:01 06/12/21 15:08 Sodium Chloride 0.9% 10 Ml Syringe FLUSH 10 ml ASDIRECTED PRN Administration Keep Vein Open Sodium Chloride 2.5 ml 06/12/21 13:01 06/12/21 15:08 Sodium Chloride 0.9% 2.5 Ml Syringe FLUSH 2.5 ml ASDIRECTED PRN Administration Keep Vein Open Discontinued Medications Generic Name Dose Route Start Last Admin Trade Name Freq PRN Reason Stop Dose Admin Dexamethasone 6 mg 06/12/21 14:52 06/12/21 15:07 Dexamethasone 10 Mg/Ml Sdv IVPUSH 06/12/21 14:53 6 mg ONETIME ONE Administration Remdesivir 200 mg/ Sodium 250 mls @ 250 mls/hr 06/12/21 16:25 Chloride IV 06/12/21 16:26 ONETIME ONE Iopamidol 100 ml 06/12/21 15:49 06/12/21 15:50 Iopamidol 755 Mg/Ml 500 Ml Multipack Bottle IVPUSH 06/12/21 15:50 100 ml ONETIME ONE Administration Departure - Departure Time of Disposition: 16:52 Disposition: Admitted As Inpatient 68 Condition: Fair Clinical Impression: Pneumonia due to COVID-19 virus, Hypoxia - Discharge Information *PRESCRIPTION DRUG MONITORING PROGRAM REVIEWED*: Not Applicable *COPY OF PRESCRIPTION DRUG MONITORING REPORT IN PATIENT MACREL: Not Applicable Referrals: PCP,None [Primary Care Provider] - Forms: ED Department Discharge Sepsis Event Note (ED) - Focused Exam Vital Signs: Vital Signs Temp Pulse Resp BP Pulse Ox 06/12/21 16:28 99 100/64 95 06/12/21 15:09 101 H 20 103/61 90 L 06/12/21 13:00 99.6 F 220 H 26 H 123/73 87 L - My Orders Last 24 Hours: My Active Orders 06/12/21 13:01 Sodium Chloride 0.9% [Saline Flush] 10 ml FLUSH ASDIRECTED PRN Sodium Chloride 0.9% [Saline Flush] 2.5 ml FLUSH ASDIRECTED PRN Saline Lock Insert [OM.PC] Stat - Assessment/Plan Last 24 Hours: My Active Orders 06/12/21 13:01 Sodium Chloride 0.9% [Saline Flush] 10 ml FLUSH ASDIRECTED PRN Sodium Chloride 0.9% [Saline Flush] 2.5 ml FLUSH ASDIRECTED PRN Saline Lock Insert [OM.PC] Stat Assessment:: 26-year-old female presenting with significant hypoxia and tachycardia improved somewhat on nasal cannula now on 4 L at this time. They is known Covid should be considered as well as this is a very atypical course for flu A. Relevant labs troponin and BNP to assess for any signs of right heart strain CT pulmonary angio all pending. 1615: Patient is in fact Covid positive and steroids have been ordered. Patien t's work of breathing is normal. Other labs notable for mild transaminitis. CT pulmonary angiogram is pending the patient discussed with Dr. Rosales, and we will admit for further care.
[2021-06-12 13:23] LABS: BLOOD UREA NITROGEN,BUN 6 mg/dL (7.0-18.0); CARBON DIOXIDE,CO2 26.2 mmol/L (21.0-32.0); CHLORIDE,CL 97 mmol/L (98-107); GLUCOSE RANDOM 125 mg/dL (74-106); POTASSIUM,K 3.6 mmol/L (3.5-5.1); SODIUM,NA 136 mmol/L (136-145)
--- NOTE | 2021-06-12 13:39 | CR ---
INDICATION: SOB and hypoxia. Flu shot last week. TECHNIQUE: Upright portable AP image of the chest. COMPARISON: None. FINDINGS: Shallow inspiration with crowded markings. Possible mid left lung infiltrate. No pleural effusion. Borderline cardiomegaly. Pulmonary veins not obviously engorged. No significant bony abnormality. IMPRESSION: 1. Shallow inspiration and possible mid left lung infiltrate. 2. Borderline cardiomegaly. Dictated by Nic Hope MD @ 06/12/2021 1:38:12 PM (Electronically Signed)
[2021-06-12 13:51] LABS: CORONAVIRUS COVID-19 NAA POSITIVE (NEGATIVE); INFLUENZA A NAA NEGATIVE (NEGATIVE); INFLUENZA B NAA NEGATIVE (NEGATIVE)
[2021-06-12] MEDS ORDERED: Dexamethasone 10 MG/ML SDV IVPUSH ONE (14:52)
[2021-06-12] MEDS ORDERED: Iopamidol 755 MG/ML 500 ML Multipack Bottle IVPUSH ONE (15:49)
--- NOTE | 2021-06-12 16:14 | CT ---
Indication: COVID-19 positive. Hypoxia. Technique: CT of the chest. Coronal/sagittal reconstruction images. 100 cc of Isovue 370 IV. Comparison: CT of the chest, 05/11/2017. Findings: No pulmonary emboli. The study is technically adequate. There is no evidence for right heart strain. No pulmonary infarct. Thoracic aorta is normal. No pleural or pericardial effusion. Hilar lymph nodes, potentially reactive in nature, with the largest measuring approximately 16 mm, station 11R lung windows demonstrate extensive pulmonary infiltrates, typical for COVID-19 pneumonia, with areas of nicholas consolidation, best demonstrated at the right lung base. No honeycomb formation. No traction bronchiectasis. No resorptive atelectasis or pneumothorax. Evaluation of the upper abdomen demonstrates diffuse hepatic steatosis. The liver measures up to 23.5 cm in dimension. Spleen size is at the upper limits of normal. No adrenal mass. No pancreatic mass or pancreatic duct dilation. No upper abdominal lymphadenopathy or ascites. Bone windows demonstrate no suspicious bone lesions. Alignment is maintained. Vertebral body heights are maintained on sagittal reconstruction images. Manubrium and body of the sternum are intact. Impression: 1. No pulmonary emboli. 2. No evidence for right heart strain. No pulmonary infarct. 3. Extensive pulmonary infiltrates in both lungs, with regions of nicholas consolidation. Findings are typical for COVID-19 pneumonia. Please note that all CT scans at this facility use dose modulation, iterative reconstruction, and/or weight-based dosing when appropriate to reduce radiation dose to as low as reasonably achievable. Dictated by Anthony Durham MD @ 06/12/2021 4:13:37 PM (Electronically Signed)
[2021-06-12] MEDS ORDERED: REMDESIVIR 200 MG in Sodium Chloride 0.9% 250 ML IV ONE (16:25)
[2021-06-12] MEDS ORDERED: Dexamethasone 4 MG Tab PO SCH (16:30)
[2021-06-12] MEDS ORDERED: REMDESIVIR 100 MG in Sodium Chloride 0.9% 100 ML IV SCH (16:30)
--- NOTE | 2021-06-12 16:31 | PCM.HP.2 ---
H&P History of Present Illness - General Date of Service: 06/12/21 - History of Present Illness Initial Comments - Free Text/Narative: 26 yo female with pmh of Asthma who presents with two week history of cough shortness of breath and fatigue. Her mother had recently tested positive for Influenza A and negative for COVID. Patient herself tested positive for influenza but was not tested for COVID. She took five days of tamiflu but did not feel any better. In the ED she is requiring 4 L NC to keep sats. She is positive for COVID and negative for flu. Her CXR reports mid left lung infiltrate - Related Data Allergies/Adverse Reactions: Allergies Allergy/AdvReac Type Severity Reaction Status Date / Time No Known Allergies Allergy Verified 06/12/21 13:52 Home Medications: Home Meds . 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: Musculoskeletal History: Reports: Back Pain, Chronic Endocrine/Metabolic History: Reports: Obesity/BMI 30+ Dermatologic History: Reports: Eczema, Psoriasis - Past Surgical History HEENT Surgical History: Reports: Oral Surgery, Other (See Below) Respiratory Surgical History: Reports: None Endocrine Surgical History: Reports: None Social & Family History - Family History Family Medical History: No Pertinent Family History HEENT: Reports: Cataract, Glaucoma Cardiac: Reports: Heart Murmur, High Cholesterol, Hypertension, Other (See Below) Other Cardiac Family History: heart disease Respiratory: Reports: Asthma GI: Reports: Cholelithiasis : Reports: Dialysis OBGYN: Reports: Endocrine/Metabolic: Reports: Diabetes, type II Oncologic: Reports: Other (See Below) Other Oncologic Family History: ewings sarcoma - Tobacco Use Tobacco Use Status *Q: Never Tobacco User - Caffeine Use Caffeine Use: Reports: None - Recreational Drug Use Recreational Drug Use: No H&P Review of Systems - Review of Systems: Review Of Systems: Comprehensive ROS is negative, except as noted in HPI. Exam - Exam Exam: See Below - Vital Signs Vital Signs: Last Vital Signs Temp 37.6 C 06/12/21 13:00 Pulse 99 06/12/21 16:28 Resp 20 06/12/21 15:09 BP 100/64 06/12/21 16:28 Pulse Ox 95 06/12/21 16:28 Weight: 136.078 kg - Exam General: Alert, Oriented, Other (morbid obesity) HEENT: Mucosa Moist & [place] Neck: Supple Lungs: Clear to Auscultation, Normal Respiratory Effort Cardiovascular: Regular Rate, Regular Rhythm GI/Abdominal Exam: Normal Bowel Sounds, Soft, Non-Tender Extremities: Non-Tender, Pedal Edema (+1) Skin: Warm, Dry, Intact - Patient Data Lab Results Last 24 hrs: Laboratory Results - last 24 hr 06/12/21 06/12/21 06/12/21 Range/Units 12:40 12:45 12:45 WBC 2.67 L (4.0-11.0) K/uL RBC 4.60 (4.30-5.90) M/uL Hgb 13.7 (12.0-16.0) g/dL Hct 40.4 (36.0-46.0) % MCV 87.8 (80.0-98.0) fL MCH 29.8 (27.0-32.0) pg MCHC 33.9 (31.0-37.0) g/dL RDW Std Deviation 44.7 (28.0-62.0) fl RDW Coeff of Valerie 14 (11.0-15.0) % Plt Count 200 (150-400) K/uL MPV 12.10 H (7.40-12.00) fL Neut % (Auto) 65.2 (48.0-80.0) % Lymph % (Auto) 25.8 (16.0-40.0) % [place] % (Auto) 9.0 (0.0-15.0) % Eos % (Auto) 0.0 (0.0-7.0) % Baso % (Auto) 0.0 (0.0-1.5) % Neut # (Auto) 1.7 (1.4-5.7) K/uL Lymph # (Auto) 0.7 (0.6-2.4) K/uL [place] # (Auto) 0.2 (0.0-0.8) K/uL Eos # (Auto) 0.0 (0.0-0.7) K/uL Baso # (Auto) 0.0 (0.0-0.1) K/uL Nucleated RBC % 0.0 /100WBC Nucleated RBCs # 0 K/uL Sodium 136 (136-145) mmol/L Potassium 3.6 (3.5-5.1) mmol/L Chloride 97 L (98-107) mmol/L Carbon Dioxide 26.2 (21.0-32.0) mmol/L BUN 6 L (7.0-18.0) mg/dL Creatinine 0.8 (0.6-1.0) mg/dL Est Cr Clr Drug Dosing TNP Estimated GFR (MDRD) > 60.0 ml/min Glucose 125 H (74-106) mg/dL Lactic Acid (0.4-2.0) mmol/L Calcium 8.8 (8.5-10.1) mg/dL Total Bilirubin 0.4 (0.2-1.0) mg/dL AST 201 H (15-37) IU/L ALT 316 H (14-63) IU/L Alkaline Phosphatase 65 (46-116) U/L Troponin I < 0.050 (0.000-0.056) ng/mL B-Natriuretic Peptide (<100) PG/ML Total Protein 7.5 (6.4-8.2) g/dL Albumin 3.3 L (3.4-5.0) g/dL Globulin 4.2 H (2.6-4.0) g/dL Albumin/Globulin Ratio 0.8 L (0.9-1.6) Influenza Type A RNA NEGATIVE (NEGATIVE) Influenza Type B RNA NEGATIVE (NEGATIVE) SARS-CoV-2 RNA (ELIGIO) POSITIVE H (NEGATIVE) 06/12/21 06/12/21 Range/Units 12:45 13:40 WBC (4.0-11.0) K/uL RBC (4.30-5.90) M/uL Hgb (12.0-16.0) g/dL Hct (36.0-46.0) % MCV (80.0-98.0) fL MCH (27.0-32.0) pg MCHC (31.0-37.0) g/dL RDW Std Deviation (28.0-62.0) fl RDW Coeff of Valerie (11.0-15.0) % Plt Count (150-400) K/uL MPV (7.40-12.00) fL Neut % (Auto) (48.0-80.0) % Lymph % (Auto) (16.0-40.0) % [place] % (Auto) (0.0-15.0) % Eos % (Auto) (0.0-7.0) % Baso % (Auto) (0.0-1.5) % Neut # (Auto) (1.4-5.7) K/uL Lymph # (Auto) (0.6-2.4) K/uL Millard # (Auto) (0.0-0.8) K/uL Eos # (Auto) (0.0-0.7) K/uL Baso # (Auto) (0.0-0.1) K/uL Nucleated RBC % /100WBC Nucleated RBCs # K/uL Sodium (136-145) mmol/L Potassium (3.5-5.1) mmol/L Chloride (98-107) mmol/L Carbon Dioxide (21.0-32.0) mmol/L BUN (7.0-18.0) mg/dL Creatinine (0.6-1.0) mg/dL Est Cr Clr Drug Dosing Estimated GFR (MDRD) ml/min Glucose (74-106) mg/dL Lactic Acid 1.3 (0.4-2.0) mmol/L Calcium (8.5-10.1) mg/dL Total Bilirubin (0.2-1.0) mg/dL AST (15-37) IU/L ALT (14-63) IU/L Alkaline Phosphatase (46-116) U/L Troponin I (0.000-0.056) ng/mL B-Natriuretic Peptide 8 (<100) PG/ML Total Protein (6.4-8.2) g/dL Albumin (3.4-5.0) g/dL Globulin (2.6-4.0) g/dL Albumin/Globulin Ratio (0.9-1.6) Influenza Type A RNA (NEGATIVE) Influenza Type B RNA (NEGATIVE) SARS-CoV-2 RNA (ELIGIO) (NEGATIVE) Result Diagrams: 06/12/21 12:45 06/12/21 12:45 Sepsis Event Note - Evaluation Sepsis Screening Result: Possible Sepsis Risk - Focused Exam Vital Signs: Vital Signs Temp Pulse Resp BP Pulse Ox 06/12/21 16:28 99 100/64 95 06/12/21 15:09 101 H 20 103/61 90 L 06/12/21 13:00 37.6 C 220 H 26 H 123/73 87 L - Problem List (1) Hypoxia SNOMED Code(s): 437554911 ICD Code: R09.02 - HYPOXEMIA Status: Acute Current Visit: Yes (2) Pneumonia due to COVID-19 virus SNOMED Code(s): 864995828450796489 ICD Code: U07.1 - COVID-19; J12.82 - PNEUMONIA DUE TO CORONAVIRUS DISEASE 2019 Status: Acute Current Visit: Yes Problem List Initiated/Reviewed/Updated: Yes Orders Last 24hrs: Active Orders 24 hr Category Date Time Status Antiembolic Devices [RC] PER UNIT ROUTINE Care 06/12/21 16:27 Ordered Oxygen Therapy [RC] PRN Care 06/12/21 16:26 Ordered Up ad Barbara [RC] ASDIRECTED Care 06/12/21 16:26 Ordered VTE/DVT Education [RC] PER UNIT ROUTINE Care 06/12/21 16:26 Ordered Vital Signs [RC] Q4H Care 06/12/21 16:26 Ordered Regular Diet [DIET] Diet 06/12/21 Breakfast Ordered CBC WITH AUTO DIFF [HEME] AM Lab 06/13/21 05:11 Ordered CBC WITH AUTO DIFF [HEME] AM Lab 06/14/21 05:11 Ordered CBC WITH AUTO DIFF [HEME] AM Lab 06/15/21 05:11 Ordered CBC WITH AUTO DIFF [HEME] AM Lab 06/16/21 05:11 Ordered CBC WITH AUTO DIFF [HEME] AM Lab 06/17/21 05:11 Ordered COMPREHENSIVE METABOLIC PN,CMP [CHEM] AM Lab 06/13/21 05:11 Ordered COMPREHENSIVE METABOLIC PN,CMP [CHEM] AM Lab 06/14/21 05:11 Ordered COMPREHENSIVE METABOLIC PN,CMP [CHEM] AM Lab 06/15/21 05:11 Ordered COMPREHENSIVE METABOLIC PN,CMP [CHEM] AM Lab 06/16/21 05:11 Ordered COMPREHENSIVE METABOLIC PN,CMP [CHEM] AM Lab 06/17/21 05:11 Ordered Remdesivir 100 mg Med 06/12/21 16:30 Ordered Sodium Chloride 0.9% [Normal Saline AdvBag] 100 ml IV Q24H Sodium Chloride 0.9% [Saline Flush] Med 06/12/21 13:01 Active 10 ml FLUSH ASDIRECTED PRN Sodium Chloride 0.9% [Saline Flush] Med 06/12/21 13:01 Active 2.5 ml FLUSH ASDIRECTED PRN dexAMETHasone Med 06/12/21 16:30 Ordered 6 mg PO Q24H Saline Lock Insert [OM.PC] Stat Oth 06/12/21 13:01 Ordered Sequential Compression Device [OM.PC] Per Unit Routine Oth 06/12/21 16:26 Ordered Resuscitation Status Routine Resus Stat 06/12/21 16:26 Ordered Medication Orders Dexamethasone (Dexamethasone 4 Mg Tab) 6 mg PO Q24H YASH Remdesivir 100 mg/ Sodium (Chloride) 100 mls @ 100 mls/hr IV Q24H YASH Stop: 06/15/21 17:29 Sodium Chloride (Sodium Chloride 0.9% 10 Ml Syringe) 10 ml FLUSH ASDIRECTED PRN PRN Reason: Keep Vein Open Last Admin: 06/12/21 15:08 Dose: 10 ml Documented by: SAHRA Sodium Chloride (Sodium Chloride 0.9% 2.5 Ml Syringe) 2.5 ml FLUSH ASDIRECTED PRN PRN Reason: Keep Vein Open Last Admin: 06/12/21 15:08 Dose: 2.5 ml Documented by: SAHRA Assessment/Plan Comment:: 26 yo female admitted for COVID-19 with hypoxia and possible recent coinfection with influenza Hypoxia: on 5 L NC COVID-19: treating with remdesivir and dexamethasone Chest angio is pending
[2021-06-12] MEDS ORDERED: cefTRIAXone 1 GM in Premix Bag 1 BAG IV SCH (16:45)
[2021-06-12] MEDS ORDERED: Azithromycin 500 MG Vial IV SCH (16:45)
[2021-06-12] MEDS ORDERED: Albuterol/Ipratropium 4 GM Inhalation Spray INH SCH (18:00)
[2021-06-12] MEDS ORDERED: Albuterol/Ipratropium 4 GM Inhalation Spray INH ONE ×2 (22:15)
[2021-06-12] MEDS: Dexamethasone 4 MG Tab PO SCH (22:19)
[2021-06-12] MEDS: Enoxaparin 40 MG/0.4 ML Syringe SUBCUT SCH (22:19)
[2021-06-12] MEDS: cefTRIAXone 1 GM in Premix Bag 1 BAG IV SCH (22:19)
[2021-06-12] MEDS ORDERED: Azithromycin 500 MG in Sodium Chloride 0.9% 250 ML IV SCH (22:30)
[2021-06-13] MEDS: Albuterol/Ipratropium 4 GM Inhalation Spray INH SCH ×5 (02:20→23:20)
[2021-06-13 08:33] LABS: BLOOD UREA NITROGEN,BUN 7 mg/dL (7.0-18.0); CHLORIDE,CL 101 mmol/L (98-107); GLUCOSE RANDOM 136 mg/dL (74-106); POTASSIUM,K 3.4 mmol/L (3.5-5.1); SODIUM,NA 138 mmol/L (136-145)
[2021-06-13] MEDS: Enoxaparin 40 MG/0.4 ML Syringe SUBCUT SCH ×2 (09:38→21:08)
[2021-06-13] MEDS: Acetaminophen 325 MG Tab PO PRN (13:59)
[2021-06-13] MEDS ORDERED: Doxycycline 100 MG in Sodium Chloride 0.9% 100 ML IV SCH (14:00)
--- NOTE | 2021-06-13 14:22 | PCM.PN ---
- General Info Date of Service: 06/13/21 - Review of Systems Systems Review Comment:: reports shortness of breath, cough - Patient Data Vitals - Most Recent: Last Vital Signs Temp 36.2 C 06/13/21 09:00 Pulse 80 06/13/21 09:00 Resp 20 06/13/21 09:00 BP 120/49 L 06/13/21 09:00 Pulse Ox 90 L 06/13/21 09:00 Weight - Most Recent: 132.177 kg I&O - Last 24 Hours: Intake & Output 06/12/21 06/13/21 06/13/21 22:59 06:59 14:59 Intake Total 737 Balance 737 Lab Results Last 24 Hours: Laboratory Results - last 24 hr 06/12/21 06/12/21 06/12/21 Range/Units 12:40 12:45 12:45 WBC (4.0-11.0) K/uL RBC (4.30-5.90) M/uL Hgb (12.0-16.0) g/dL Hct (36.0-46.0) % MCV (80.0-98.0) fL MCH (27.0-32.0) pg MCHC (31.0-37.0) g/dL RDW Std Deviation (28.0-62.0) fl RDW Coeff of Valerie (11.0-15.0) % Plt Count (150-400) K/uL MPV (7.40-12.00) fL Neut % (Auto) (48.0-80.0) % Lymph % (Auto) (16.0-40.0) % [place] % (Auto) (0.0-15.0) % Eos % (Auto) (0.0-7.0) % Baso % (Auto) (0.0-1.5) % Neut # (Auto) (1.4-5.7) K/uL Lymph # (Auto) (0.6-2.4) K/uL [place] # (Auto) (0.0-0.8) K/uL Eos # (Auto) (0.0-0.7) K/uL Baso # (Auto) (0.0-0.1) K/uL Nucleated RBC % /100WBC Nucleated RBCs # K/uL Sodium (136-145) mmol/L Potassium (3.5-5.1) mmol/L Chloride (98-107) mmol/L Carbon Dioxide (21.0-32.0) mmol/L BUN (7.0-18.0) mg/dL Creatinine (0.6-1.0) mg/dL Est Cr Clr Drug Dosing mL/min Estimated GFR (MDRD) ml/min Glucose (74-106) mg/dL Lactic Acid (0.4-2.0) mmol/L Calcium (8.5-10.1) mg/dL Total Bilirubin (0.2-1.0) mg/dL AST (15-37) IU/L ALT (14-63) IU/L Alkaline Phosphatase (46-116) U/L C-Reactive Protein 6.60 H (0.00-0.90) mg/dL B-Natriuretic Peptide 8 (<100) PG/ML Total Protein (6.4-8.2) g/dL Albumin (3.4-5.0) g/dL Globulin (2.6-4.0) g/dL Albumin/Globulin Ratio (0.9-1.6) SARS-CoV-2 RNA (ELIGIO) POSITIVE H (NEGATIVE) 06/12/21 06/13/21 06/13/21 Range/Units 13:40 06:39 06:39 WBC 2.13 L (4.0-11.0) K/uL RBC 4.40 (4.30-5.90) M/uL Hgb 12.8 (12.0-16.0) g/dL Hct 39.0 (36.0-46.0) % MCV 88.6 (80.0-98.0) fL MCH 29.1 (27.0-32.0) pg MCHC 32.8 (31.0-37.0) g/dL RDW Std Deviation 45.3 (28.0-62.0) fl RDW Coeff of Valerie 14 (11.0-15.0) % Plt Count 225 (150-400) K/uL MPV 12.40 H (7.40-12.00) fL Neut % (Auto) 58.2 (48.0-80.0) % Lymph % (Auto) 29.1 (16.0-40.0) % [place] % (Auto) 12.2 (0.0-15.0) % Eos % (Auto) 0.0 (0.0-7.0) % Baso % (Auto) 0.5 (0.0-1.5) % Neut # (Auto) 1.2 L (1.4-5.7) K/uL Lymph # (Auto) 0.6 (0.6-2.4) K/uL [place] # (Auto) 0.3 (0.0-0.8) K/uL Eos # (Auto) 0.0 (0.0-0.7) K/uL Baso # (Auto) 0.0 (0.0-0.1) K/uL Nucleated RBC % 0.0 /100WBC Nucleated RBCs # 0 K/uL Sodium 138 (136-145) mmol/L Potassium 3.4 L (3.5-5.1) mmol/L Chloride 101 (98-107) mmol/L Carbon Dioxide 26.0 (21.0-32.0) mmol/L BUN 7 (7.0-18.0) mg/dL Creatinine 0.6 (0.6-1.0) mg/dL Est Cr Clr Drug Dosing 124.85 mL/min Estimated GFR (MDRD) > 60.0 ml/min Glucose 136 H (74-106) mg/dL Lactic Acid 1.3 (0.4-2.0) mmol/L Calcium 8.2 L (8.5-10.1) mg/dL Total Bilirubin 0.4 (0.2-1.0) mg/dL AST 125 H (15-37) IU/L ALT 248 H (14-63) IU/L Alkaline Phosphatase 49 (46-116) U/L C-Reactive Protein (0.00-0.90) mg/dL B-Natriuretic Peptide (<100) PG/ML Total Protein 6.9 (6.4-8.2) g/dL Albumin 2.9 L (3.4-5.0) g/dL Globulin 4.0 (2.6-4.0) g/dL Albumin/Globulin Ratio 0.7 L (0.9-1.6) SARS-CoV-2 RNA (ELIGIO) (NEGATIVE) Med Orders - Current: Current Medications Acetaminophen (Acetaminophen 325 Mg Tab) 650 mg PO Q6H PRN PRN Reason: Pain Last Admin: 06/13/21 13:59 Dose: 650 mg Documented by: Albuterol/Ipratropium (Albuterol/Ipratropium 4 Gm Inhalation [place]) 1 gm INH QID [facility] Last Admin: 06/13/21 12:34 Dose: 1 mdi Documented by: Dexamethasone (Dexamethasone 4 Mg Tab) 6 mg PO Q24H [facility] Last Admin: 06/12/21 22:19 Dose: 6 mg Documented by: Enoxaparin Sodium (Enoxaparin 40 Mg/0.4 Ml Syringe) 40 mg SUBCUT Q12HR [facility] Last Admin: 06/13/21 09:38 Dose: 40 mg Documented by: Ceftriaxone Sodium/Dextrose 1 (gm/ Premix) 50 mls @ 100 mls/hr IV Q24H [facility] Last Admin: 06/12/21 22:19 Dose: 100 mls/hr Documented by: Remdesivir 100 mg/ Sodium (Chloride) 100 mls @ 100 mls/hr IV Q24H [facility] Stop: 06/16/21 21:29 Doxycycline Hyclate 100 mg/ (Sodium Chloride) 100 mls @ 100 mls/hr IV Q12H [facility] Last Admin: 06/13/21 13:59 Dose: 100 mls/hr Documented by: Sodium Chloride (Sodium Chloride 0.9% 10 Ml Syringe) 10 ml FLUSH ASDIRECTED PRN PRN Reason: Keep Vein Open Last Admin: 06/12/21 15:08 Dose: 10 ml Documented by: Sodium Chloride (Sodium Chloride 0.9% 2.5 Ml Syringe) 2.5 ml FLUSH ASDIRECTED PRN PRN Reason: Keep Vein Open Last Admin: 06/12/21 15:08 Dose: 2.5 ml Documented by: Discontinued Medications Albuterol/Ipratropium (Albuterol/Ipratropium 4 Gm Inhalation [place]) 1 gm INH QID [facility] Last Admin: 06/13/21 00:59 Dose: Not Given Documented by: Albuterol/Ipratropium (Albuterol/Ipratropium 4 Gm Inhalation [place]) 1 gm INH ONETIME ONE Stop: 06/12/21 22:16 Albuterol/Ipratropium (Albuterol/Ipratropium 4 Gm Inhalation [place]) 0 gm INH ONETIME ONE Stop: 06/12/21 22:16 Last Admin: 06/12/21 22:19 Dose: 1 puff Documented by: Azithromycin (Azithromycin 500 Mg Vial) 500 mg IV Q24H [facility] Last Admin: 06/13/21 00:59 Dose: Not Given Documented by: Dexamethasone (Dexamethasone 10 Mg/Ml Sdv) 6 mg IVPUSH ONETIME ONE Stop: 06/12/21 14:53 Last Admin: 06/12/21 15:07 Dose: 6 mg Documented by: Dexamethasone (Dexamethasone 4 Mg Tab) 6 mg PO Q24H YASH Last Admin: 06/13/21 00:57 Dose: Not Given Documented by: Remdesivir 100 mg/ Sodium (Chloride) 100 mls @ 100 mls/hr IV Q24H [facility] Stop: 06/15/21 17:29 Last Admin: 06/13/21 00:58 Dose: Not Given Documented by: Remdesivir 200 mg/ Sodium (Chloride) 250 mls @ 250 mls/hr IV ONETIME ONE Stop: 06/12/21 16:26 Last Admin: 06/12/21 19:40 Dose: 250 mls/hr Documented by: Ceftriaxone Sodium/Dextrose 1 (gm/ Premix) 50 mls @ 100 mls/hr IV Q24H [facility] Last Admin: 06/13/21 00:58 Dose: Not Given Documented by: Azithromycin 500 mg/ Sodium (Chloride) 250 mls @ 250 mls/hr IV Q24H [facility] Last Admin: 06/12/21 22:20 Dose: 250 mls/hr Documented by: Iopamidol (Iopamidol 755 Mg/Ml 500 Ml Multipack Bottle) 100 ml IVPUSH ONETIME ONE Stop: 06/12/21 15:50 Last Admin: 06/12/21 15:50 Dose: 100 ml Documented by: - Exam General: Alert, Oriented Neck: Supple Lungs: Clear to Auscultation, Normal Respiratory Effort Cardiovascular: Regular Rate, Regular Rhythm GI/Abdominal Exam: Soft, Non-Tender, No Distention Extremities: Non-Tender, No Pedal Edema Skin: Warm, Dry, Intact Neurological: No New Focal Deficit - Patient Data Lab Results Last 24 hrs: Laboratory Results - last 24 hr 06/12/21 06/12/21 06/12/21 Range/Units 12:40 12:45 12:45 WBC (4.0-11.0) K/uL RBC (4.30-5.90) M/uL Hgb (12.0-16.0) g/dL Hct (36.0-46.0) % MCV (80.0-98.0) fL MCH (27.0-32.0) pg MCHC (31.0-37.0) g/dL RDW Std Deviation (28.0-62.0) fl RDW Coeff of Valerie (11.0-15.0) % Plt Count (150-400) K/uL MPV (7.40-12.00) fL Neut % (Auto) (48.0-80.0) % Lymph % (Auto) (16.0-40.0) % [place] % (Auto) (0.0-15.0) % Eos % (Auto) (0.0-7.0) % Baso % (Auto) (0.0-1.5) % Neut # (Auto) (1.4-5.7) K/uL Lymph # (Auto) (0.6-2.4) K/uL [place] # (Auto) (0.0-0.8) K/uL Eos # (Auto) (0.0-0.7) K/uL Baso # (Auto) (0.0-0.1) K/uL Nucleated RBC % /100WBC Nucleated RBCs # K/uL Sodium (136-145) mmol/L Potassium (3.5-5.1) mmol/L Chloride (98-107) mmol/L Carbon Dioxide (21.0-32.0) mmol/L BUN (7.0-18.0) mg/dL Creatinine (0.6-1.0) mg/dL Est Cr Clr Drug Dosing mL/min Estimated GFR (MDRD) ml/min Glucose (74-106) mg/dL Lactic Acid (0.4-2.0) mmol/L Calcium (8.5-10.1) mg/dL Total Bilirubin (0.2-1.0) mg/dL AST (15-37) IU/L ALT (14-63) IU/L Alkaline Phosphatase (46-116) U/L C-Reactive Protein 6.60 H (0.00-0.90) mg/dL B-Natriuretic Peptide 8 (<100) PG/ML Total Protein (6.4-8.2) g/dL Albumin (3.4-5.0) g/dL Globulin (2.6-4.0) g/dL Albumin/Globulin Ratio (0.9-1.6) SARS-CoV-2 RNA (ELIGIO) POSITIVE H (NEGATIVE) 06/12/21 06/13/21 06/13/21 Range/Units 13:40 06:39 06:39 WBC 2.13 L (4.0-11.0) K/uL RBC 4.40 (4.30-5.90) M/uL Hgb 12.8 (12.0-16.0) g/dL Hct 39.0 (36.0-46.0) % MCV 88.6 (80.0-98.0) fL MCH 29.1 (27.0-32.0) pg MCHC 32.8 (31.0-37.0) g/dL RDW Std Deviation 45.3 (28.0-62.0) fl RDW Coeff of Valerie 14 (11.0-15.0) % Plt Count 225 (150-400) K/uL MPV 12.40 H (7.40-12.00) fL Neut % (Auto) 58.2 (48.0-80.0) % Lymph % (Auto) 29.1 (16.0-40.0) % [place] % (Auto) 12.2 (0.0-15.0) % Eos % (Auto) 0.0 (0.0-7.0) % Baso % (Auto) 0.5 (0.0-1.5) % Neut # (Auto) 1.2 L (1.4-5.7) K/uL Lymph # (Auto) 0.6 (0.6-2.4) K/uL [place] # (Auto) 0.3 (0.0-0.8) K/uL Eos # (Auto) 0.0 (0.0-0.7) K/uL Baso # (Auto) 0.0 (0.0-0.1) K/uL Nucleated RBC % 0.0 /100WBC Nucleated RBCs # 0 K/uL Sodium 138 (136-145) mmol/L Potassium 3.4 L (3.5-5.1) mmol/L Chloride 101 (98-107) mmol/L Carbon Dioxide 26.0 (21.0-32.0) mmol/L BUN 7 (7.0-18.0) mg/dL Creatinine 0.6 (0.6-1.0) mg/dL Est Cr Clr Drug Dosing 124.85 mL/min Estimated GFR (MDRD) > 60.0 ml/min Glucose 136 H (74-106) mg/dL Lactic Acid 1.3 (0.4-2.0) mmol/L Calcium 8.2 L (8.5-10.1) mg/dL Total Bilirubin 0.4 (0.2-1.0) mg/dL AST 125 H (15-37) IU/L ALT 248 H (14-63) IU/L Alkaline Phosphatase 49 (46-116) U/L C-Reactive Protein (0.00-0.90) mg/dL B-Natriuretic Peptide (<100) PG/ML Total Protein 6.9 (6.4-8.2) g/dL Albumin 2.9 L (3.4-5.0) g/dL Globulin 4.0 (2.6-4.0) g/dL Albumin/Globulin Ratio 0.7 L (0.9-1.6) SARS-CoV-2 RNA (ELIGIO) (NEGATIVE) Result Diagrams: 06/13/21 06:39 06/13/21 06:39 Sepsis Event Note - Evaluation Sepsis Screening Result: No Definite Risk - Focused Exam Vital Signs: Vital Signs Temp Pulse Resp BP Pulse Ox 06/13/21 09:00 36.2 C 80 20 120/49 L 90 L 06/13/21 05:00 35.9 C L 80 16 100/50 L 90 L - Problem List & Annotations (1) Hypoxia SNOMED Code(s): 280235607 Code(s): R09.02 - HYPOXEMIA Status: Acute Current Visit: Yes (2) Pneumonia due to COVID-19 virus SNOMED Code(s): 852141666063442894 Code(s): U07.1 - COVID-19; J12.82 - PNEUMONIA DUE TO CORONAVIRUS DISEASE 2019 Status: Acute Current Visit: Yes - Problem List Review Problem List Initiated/Reviewed/Updated: Yes - My Orders Last 24 Hours: My Active Orders 06/12/21 16:26 Oxygen Therapy [RC] PRN VTE/DVT Education [RC] PER UNIT ROUTINE Vital Signs [RC] Q4H Sequential Compression Device [OM.PC] Per Unit Routine Resuscitation Status Routine 06/12/21 16:27 Antiembolic Devices [RC] PER UNIT ROUTINE 06/12/21 16:29 RT Post Treatment Assessment [RC] Click to Edit RT Pre-Treatment Assessment [RC] Click to Edit 06/12/21 16:37 Admission Status [Patient Status] [ADT] Stat 06/12/21 17:26 PROCALCITONIN [REF] Routine 06/12/21 21:00 Enoxaparin [Lovenox] 40 mg SUBCUT Q12HR 06/12/21 22:00 cefTRIAXone [Rocephin in Dextrose,Iso-Osm 1 GM/50 ML] 1 gm Premix Bag 1 bag IV Q24H dexAMETHasone 6 mg PO Q24H 06/13/21 02:00 Albuterol/Ipratropium [Combivent Respimat] 1 gm INH QID 06/13/21 13:08 Acetaminophen [TylenoL] 650 mg PO Q6H PRN 06/13/21 14:00 Doxycycline [Vibramycin] 100 mg Sodium Chloride 0.9% [Normal Saline AdvBag] 100 ml IV Q12H 06/13/21 20:30 Remdesivir 100 mg Sodium Chloride 0.9% [Normal Saline AdvBag] 100 ml IV Q24H 06/14/21 05:11 CBC WITH AUTO DIFF [HEME] AM COMPREHENSIVE METABOLIC PN,CMP [CHEM] AM 06/15/21 05:11 CBC WITH AUTO DIFF [HEME] AM COMPREHENSIVE METABOLIC PN,CMP [CHEM] AM 06/16/21 05:11 CBC WITH AUTO DIFF [HEME] AM COMPREHENSIVE METABOLIC PN,CMP [CHEM] AM 06/17/21 05:11 CBC WITH AUTO DIFF [HEME] AM COMPREHENSIVE METABOLIC PN,CMP [CHEM] AM - Plan Plan:: 26 yo female admitted for COVID-19 with hypoxia and possible recent coinfection with influenza Hypoxia: on 10 L NC COVID-19: continue remdesivir and dexamethasone also on Rocephin and azithromycin, but developed rash on azithromycin so will switch to doxycycline lovenox for DVT prophylaxis
[2021-06-13] MEDS ORDERED: Potassium Chloride 20 MEQ Tab.ER PO ONE (14:24)
[2021-06-13] MEDS: REMDESIVIR 100 MG in Sodium Chloride 0.9% 100 ML IV SCH (21:07)
[2021-06-13] MEDS: cefTRIAXone 1 GM in Premix Bag 1 BAG IV SCH (21:07)
[2021-06-13] MEDS: Dexamethasone 4 MG Tab PO SCH (21:07)
[2021-06-13] MEDS: Melatonin 3 MG Tab PO PRN (23:20)
[2021-06-14] MEDS: Albuterol/Ipratropium 4 GM Inhalation Spray INH SCH ×4 (05:14→23:20)
[2021-06-14 07:04] LABS: BLOOD UREA NITROGEN,BUN 9 mg/dL (7.0-18.0); CARBON DIOXIDE,CO2 28.1 mmol/L (21.0-32.0); CHLORIDE,CL 105 mmol/L (98-107); GLUCOSE RANDOM 141 mg/dL (74-106); POTASSIUM,K 4.2 mmol/L (3.5-5.1); SODIUM,NA 142 mmol/L (136-145)
[2021-06-14] MEDS: Enoxaparin 40 MG/0.4 ML Syringe SUBCUT SCH ×2 (09:52→20:18)
[2021-06-14] MEDS: Acetaminophen 325 MG Tab PO PRN ×2 (10:05→20:19)
--- NOTE | 2021-06-14 13:59 | PCM.PN ---
- General Info Date of Service: 06/14/21 - Review of Systems Systems Review Comment:: reports shortness of breath at rest and exertion - Patient Data Vitals - Most Recent: Last Vital Signs Temp 37 C 06/14/21 12:10 Pulse 96 06/14/21 12:10 Resp 19 06/14/21 12:10 BP 110/56 L 06/14/21 12:10 Pulse Ox 87 L 06/14/21 12:10 Weight - Most Recent: 132.177 kg I&O - Last 24 Hours: Intake & Output 06/13/21 06/14/21 06/14/21 22:59 06:59 14:59 Intake Total 2500 1290 Output Total 1050 Balance 1450 1290 Lab Results Last 24 Hours: Laboratory Results - last 24 hr 06/12/21 06/14/21 06/14/21 Range/Units 17:26 06:24 06:24 WBC 5.49 (4.0-11.0) K/uL RBC 4.33 (4.30-5.90) M/uL Hgb 13.1 (12.0-16.0) g/dL Hct 38.8 (36.0-46.0) % MCV 89.6 (80.0-98.0) fL MCH 30.3 (27.0-32.0) pg MCHC 33.8 (31.0-37.0) g/dL RDW Std Deviation 45.8 (28.0-62.0) fl RDW Coeff of Valerie 14 (11.0-15.0) % Plt Count 257 (150-400) K/uL MPV 11.90 (7.40-12.00) fL Neut % (Auto) 80.2 H (48.0-80.0) % Lymph % (Auto) 10.0 L (16.0-40.0) % [place] % (Auto) 9.8 (0.0-15.0) % Eos % (Auto) 0.0 (0.0-7.0) % Baso % (Auto) 0.0 (0.0-1.5) % Neut # (Auto) 4.4 (1.4-5.7) K/uL Lymph # (Auto) 0.6 (0.6-2.4) K/uL [place] # (Auto) 0.5 (0.0-0.8) K/uL Eos # (Auto) 0.0 (0.0-0.7) K/uL Baso # (Auto) 0.0 (0.0-0.1) K/uL Nucleated RBC % 0.0 /100WBC Nucleated RBCs # 0 K/uL Sodium 142 (136-145) mmol/L Potassium 4.2 (3.5-5.1) mmol/L Chloride 105 (98-107) mmol/L Carbon Dioxide 28.1 (21.0-32.0) mmol/L BUN 9 (7.0-18.0) mg/dL Creatinine 0.7 (0.6-1.0) mg/dL Est Cr Clr Drug Dosing 107.01 mL/min Estimated GFR (MDRD) > 60.0 ml/min Glucose 141 H (74-106) mg/dL Calcium 8.3 L (8.5-10.1) mg/dL Total Bilirubin 0.4 (0.2-1.0) mg/dL AST 88 H (15-37) IU/L ALT 204 H (14-63) IU/L Alkaline Phosphatase 49 (46-116) U/L Total Protein 6.2 L (6.4-8.2) g/dL Albumin 2.8 L (3.4-5.0) g/dL Globulin 3.4 (2.6-4.0) g/dL Albumin/Globulin Ratio 0.8 L (0.9-1.6) Procalcitonin 0.19 H ng/mL Med Orders - Current: Current Medications Acetaminophen (Acetaminophen 325 Mg Tab) 650 mg PO Q6H PRN PRN Reason: Pain Last Admin: 06/14/21 10:05 Dose: 650 mg Documented by: Albuterol/Ipratropium (Albuterol/Ipratropium 4 Gm Inhalation [place]) 1 gm INH QID [facility] Last Admin: 06/14/21 11:44 Dose: 1 mdi Documented by: Dexamethasone (Dexamethasone 4 Mg Tab) 6 mg PO Q24H [facility] Last Admin: 06/13/21 21:07 Dose: 6 mg Documented by: Enoxaparin Sodium (Enoxaparin 40 Mg/0.4 Ml Syringe) 40 mg SUBCUT Q12HR [facility] Last Admin: 06/14/21 09:52 Dose: 40 mg Documented by: Ceftriaxone Sodium/Dextrose 1 (gm/ Premix) 50 mls @ 100 mls/hr IV Q24H YASH Last Admin: 06/13/21 21:07 Dose: 100 mls/hr Documented by: Remdesivir 100 mg/ Sodium (Chloride) 100 mls @ 100 mls/hr IV Q24H YASH Stop: 06/16/21 21:29 Last Admin: 06/13/21 21:07 Dose: 100 mls/hr Documented by: Melatonin (Melatonin 3 Mg Tab) 6 mg PO BEDTIME PRN PRN Reason: Sleep Last Admin: 06/13/21 23:20 Dose: 6 mg Documented by: Sodium Chloride (Sodium Chloride 0.9% 10 Ml Syringe) 10 ml FLUSH ASDIRECTED PRN PRN Reason: Keep Vein Open Last Admin: 06/12/21 15:08 Dose: 10 ml Documented by: Sodium Chloride (Sodium Chloride 0.9% 2.5 Ml Syringe) 2.5 ml FLUSH ASDIRECTED PRN PRN Reason: Keep Vein Open Last Admin: 06/12/21 15:08 Dose: 2.5 ml Documented by: Discontinued Medications Albuterol/Ipratropium (Albuterol/Ipratropium 4 Gm Inhalation [place]) 1 gm INH QID YASH Last Admin: 06/13/21 00:59 Dose: Not Given Documented by: Albuterol/Ipratropium (Albuterol/Ipratropium 4 Gm Inhalation [place]) 1 gm INH ONETIME ONE Stop: 06/12/21 22:16 Albuterol/Ipratropium (Albuterol/Ipratropium 4 Gm Inhalation [place]) 0 gm INH ONETIME ONE Stop: 06/12/21 22:16 Last Admin: 06/12/21 22:19 Dose: 1 puff Documented by: Azithromycin (Azithromycin 500 Mg Vial) 500 mg IV Q24H [facility] Last Admin: 06/13/21 00:59 Dose: Not Given Documented by: Dexamethasone (Dexamethasone 10 Mg/Ml Sdv) 6 mg IVPUSH ONETIME ONE Stop: 06/12/21 14:53 Last Admin: 06/12/21 15:07 Dose: 6 mg Documented by: Dexamethasone (Dexamethasone 4 Mg Tab) 6 mg PO Q24H [facility] Last Admin: 06/13/21 00:57 Dose: Not Given Documented by: Remdesivir 100 mg/ Sodium (Chloride) 100 mls @ 100 mls/hr IV Q24H [facility] Stop: 06/15/21 17:29 Last Admin: 06/13/21 00:58 Dose: Not Given Documented by: Remdesivir 200 mg/ Sodium (Chloride) 250 mls @ 250 mls/hr IV ONETIME ONE Stop: 06/12/21 16:26 Last Admin: 06/12/21 19:40 Dose: 250 mls/hr Documented by: Ceftriaxone Sodium/Dextrose 1 (gm/ Premix) 50 mls @ 100 mls/hr IV Q24H [facility] Last Admin: 06/13/21 00:58 Dose: Not Given Documented by: Azithromycin 500 mg/ Sodium (Chloride) 250 mls @ 250 mls/hr IV Q24H [facility] Last Admin: 06/12/21 22:20 Dose: 250 mls/hr Documented by: Doxycycline Hyclate 100 mg/ (Sodium Chloride) 100 mls @ 100 mls/hr IV Q12H [facility] Last Admin: 06/13/21 13:59 Dose: 100 mls/hr Documented by: Iopamidol (Iopamidol 755 Mg/Ml 500 Ml Multipack Bottle) 100 ml IVPUSH ONETIME ONE Stop: 06/12/21 15:50 Last Admin: 06/12/21 15:50 Dose: 100 ml Documented by: Potassium Chloride (Potassium Chloride 20 Meq Tab.Er) 40 meq PO ONETIME ONE Stop: 06/13/21 14:25 Last Admin: 06/13/21 15:55 Dose: 40 meq Documented by: - Exam General: Alert, Oriented Neck: Supple Lungs: Normal Respiratory Effort, Rhonchi Cardiovascular: Regular Rate, Regular Rhythm GI/Abdominal Exam: Normal Bowel Sounds, Soft, Non-Tender Extremities: Non-Tender, No Pedal Edema - Patient Data Lab Results Last 24 hrs: Laboratory Results - last 24 hr 06/12/21 06/14/21 06/14/21 Range/Units 17:26 06:24 06:24 WBC 5.49 (4.0-11.0) K/uL RBC 4.33 (4.30-5.90) M/uL Hgb 13.1 (12.0-16.0) g/dL Hct 38.8 (36.0-46.0) % MCV 89.6 (80.0-98.0) fL MCH 30.3 (27.0-32.0) pg MCHC 33.8 (31.0-37.0) g/dL RDW Std Deviation 45.8 (28.0-62.0) fl RDW Coeff of Valerie 14 (11.0-15.0) % Plt Count 257 (150-400) K/uL MPV 11.90 (7.40-12.00) fL Neut % (Auto) 80.2 H (48.0-80.0) % Lymph % (Auto) 10.0 L (16.0-40.0) % [place] % (Auto) 9.8 (0.0-15.0) % Eos % (Auto) 0.0 (0.0-7.0) % Baso % (Auto) 0.0 (0.0-1.5) % Neut # (Auto) 4.4 (1.4-5.7) K/uL Lymph # (Auto) 0.6 (0.6-2.4) K/uL [place] # (Auto) 0.5 (0.0-0.8) K/uL Eos # (Auto) 0.0 (0.0-0.7) K/uL Baso # (Auto) 0.0 (0.0-0.1) K/uL Nucleated RBC % 0.0 /100WBC Nucleated RBCs # 0 K/uL Sodium 142 (136-145) mmol/L Potassium 4.2 (3.5-5.1) mmol/L Chloride 105 (98-107) mmol/L Carbon Dioxide 28.1 (21.0-32.0) mmol/L BUN 9 (7.0-18.0) mg/dL Creatinine 0.7 (0.6-1.0) mg/dL Est Cr Clr Drug Dosing 107.01 mL/min Estimated GFR (MDRD) > 60.0 ml/min Glucose 141 H (74-106) mg/dL Calcium 8.3 L (8.5-10.1) mg/dL Total Bilirubin 0.4 (0.2-1.0) mg/dL AST 88 H (15-37) IU/L ALT 204 H (14-63) IU/L Alkaline Phosphatase 49 (46-116) U/L Total Protein 6.2 L (6.4-8.2) g/dL Albumin 2.8 L (3.4-5.0) g/dL Globulin 3.4 (2.6-4.0) g/dL Albumin/Globulin Ratio 0.8 L (0.9-1.6) Procalcitonin 0.19 H ng/mL Result Diagrams: 06/14/21 06:24 06/14/21 06:24 Sepsis Event Note - Evaluation Sepsis Screening Result: No Definite Risk - Focused Exam Vital Signs: Vital Signs Temp Pulse Resp BP BP Pulse Ox 06/14/21 12:10 37 C 96 19 110/56 L 87 L 06/14/21 09:50 20 90 L 06/14/21 09:00 37.1 C 94 14 141/65 H 86 L 06/14/21 03:00 36.4 C 87 20 122/57 L 90 L - Problem List & Annotations (1) Hypoxia SNOMED Code(s): 301251796 Code(s): R09.02 - HYPOXEMIA Status: Acute Current Visit: Yes (2) Pneumonia due to COVID-19 virus SNOMED Code(s): 454391063253347960 Code(s): U07.1 - COVID-19; J12.82 - PNEUMONIA DUE TO CORONAVIRUS DISEASE 2019 Status: Acute Current Visit: Yes - Problem List Review Problem List Initiated/Reviewed/Updated: Yes - My Orders Last 24 Hours: My Active Orders 06/13/21 13:08 Acetaminophen [TylenoL] 650 mg PO Q6H PRN 06/13/21 20:30 Remdesivir 100 mg Sodium Chloride 0.9% [Normal Saline AdvBag] 100 ml IV Q24H 06/13/21 22:41 Melatonin 6 mg PO BEDTIME PRN 06/15/21 05:11 CBC WITH AUTO DIFF [HEME] AM COMPREHENSIVE METABOLIC PN,CMP [CHEM] AM 06/16/21 05:11 CBC WITH AUTO DIFF [HEME] AM COMPREHENSIVE METABOLIC PN,CMP [CHEM] AM 06/17/21 05:11 CBC WITH AUTO DIFF [HEME] AM COMPREHENSIVE METABOLIC PN,CMP [CHEM] AM - Plan Plan:: 26 yo female admitted for COVID-19 with hypoxia and possible recent coinfection with influenza Hypoxia: on 12 L NC COVID-19: continue remdesivir and dexamethasone also on Rocephin, had developed a rash on azithromycin and doxycyline lovenox for DVT prophylaxis
[2021-06-14] MEDS ORDERED: Sodium Chloride 0.65% Nasal Spray 45 ML Bottle NAS PRN (15:06)
[2021-06-14] MEDS: REMDESIVIR 100 MG in Sodium Chloride 0.9% 100 ML IV SCH (20:17)
[2021-06-14] MEDS: Dexamethasone 4 MG Tab PO SCH (22:06)
[2021-06-14] MEDS: cefTRIAXone 1 GM in Premix Bag 1 BAG IV SCH (22:08)
[2021-06-15] MEDS: Albuterol/Ipratropium 4 GM Inhalation Spray INH SCH ×3 (06:03→17:07)
[2021-06-15 07:22] LABS: BLOOD UREA NITROGEN,BUN 6 mg/dL (7.0-18.0); CARBON DIOXIDE,CO2 26.5 mmol/L (21.0-32.0); CHLORIDE,CL 102 mmol/L (98-107); GLUCOSE RANDOM 140 mg/dL (74-106); POTASSIUM,K 4.1 mmol/L (3.5-5.1); SODIUM,NA 138 mmol/L (136-145)
[2021-06-15] MEDS: Enoxaparin 40 MG/0.4 ML Syringe SUBCUT SCH ×2 (09:17→20:25)
[2021-06-15] MEDS: Acetaminophen 325 MG Tab PO PRN (10:19)
--- NOTE | 2021-06-15 15:21 | PCM.PN ---
- General Info Date of Service: 06/15/21 Subjective Update: Pt still requires atleast 9 L oxygen by VT. She can do about 900cc on the incentive spirometer. She is spending most of the time on the bed. - Patient Data Vitals - Most Recent: Last Vital Signs Temp 96.8 F L 06/15/21 11:00 Pulse 72 06/15/21 11:00 Resp 22 H 06/15/21 11:00 BP 120/57 L 06/15/21 11:00 Pulse Ox 92 L 06/15/21 12:00 Weight - Most Recent: 291 lb 6.4 oz I&O - Last 24 Hours: Intake & Output 06/15/21 06/15/21 06/15/21 06:59 14:59 22:59 Intake Total 800 Output Total 800 Balance 0 Lab Results Last 24 Hours: Laboratory Results - last 24 hr 06/15/21 06/15/21 Range/Units 06:21 06:21 WBC 3.42 L (4.0-11.0) K/uL RBC 4.25 L (4.30-5.90) M/uL Hgb 12.3 (12.0-16.0) g/dL Hct 37.9 (36.0-46.0) % MCV 89.2 (80.0-98.0) fL MCH 28.9 (27.0-32.0) pg MCHC 32.5 (31.0-37.0) g/dL RDW Std Deviation 46.1 (28.0-62.0) fl RDW Coeff of Valerie 14 (11.0-15.0) % Plt Count 233 (150-400) K/uL MPV 12.00 (7.40-12.00) fL Neut % (Auto) 72.8 (48.0-80.0) % Lymph % (Auto) 14.9 L (16.0-40.0) % [place] % (Auto) 12.0 (0.0-15.0) % Eos % (Auto) 0.0 (0.0-7.0) % Baso % (Auto) 0.3 (0.0-1.5) % Neut # (Auto) 2.5 (1.4-5.7) K/uL Lymph # (Auto) 0.5 L (0.6-2.4) K/uL [place] # (Auto) 0.4 (0.0-0.8) K/uL Eos # (Auto) 0.0 (0.0-0.7) K/uL Baso # (Auto) 0.0 (0.0-0.1) K/uL Nucleated RBC % 0.0 /100WBC Nucleated RBCs # 0 K/uL Sodium 138 (136-145) mmol/L Potassium 4.1 (3.5-5.1) mmol/L Chloride 102 (98-107) mmol/L Carbon Dioxide 26.5 (21.0-32.0) mmol/L BUN 6 L (7.0-18.0) mg/dL Creatinine 0.5 L (0.6-1.0) mg/dL Est Cr Clr Drug Dosing 149.82 mL/min Estimated GFR (MDRD) > 60.0 ml/min Glucose 140 H (74-106) mg/dL Calcium 8.2 L (8.5-10.1) mg/dL Total Bilirubin 0.5 (0.2-1.0) mg/dL AST 110 H (15-37) IU/L ALT 202 H (14-63) IU/L Alkaline Phosphatase 45 L (46-116) U/L Total Protein 5.9 L (6.4-8.2) g/dL Albumin 2.7 L (3.4-5.0) g/dL Globulin 3.2 (2.6-4.0) g/dL Albumin/Globulin Ratio 0.8 L (0.9-1.6) Med Orders - Current: Current Medications Acetaminophen (Acetaminophen 325 Mg Tab) 650 mg PO Q6H PRN PRN Reason: Pain Last Admin: 06/15/21 10:19 Dose: 650 mg Documented by: Albuterol/Ipratropium (Albuterol/Ipratropium 4 Gm Inhalation [place]) 1 gm INH QID [facility] Last Admin: 06/15/21 12:57 Dose: 1 mdi Documented by: Dexamethasone (Dexamethasone 4 Mg Tab) 6 mg PO Q24H [facility] Last Admin: 06/14/21 22:06 Dose: 6 mg Documented by: Enoxaparin Sodium (Enoxaparin 40 Mg/0.4 Ml Syringe) 40 mg SUBCUT Q12HR [facility] Last Admin: 06/15/21 09:17 Dose: 40 mg Documented by: Ceftriaxone Sodium/Dextrose 1 (gm/ Premix) 50 mls @ 100 mls/hr IV Q24H [facility] Last Admin: 06/14/21 22:08 Dose: 100 mls/hr Documented by: Remdesivir 100 mg/ Sodium (Chloride) 100 mls @ 100 mls/hr IV Q24H [facility] Stop: 06/16/21 21:29 Last Admin: 06/14/21 20:17 Dose: 100 mls/hr Documented by: Melatonin (Melatonin 3 Mg Tab) 6 mg PO BEDTIME PRN PRN Reason: Sleep Last Admin: 06/13/21 23:20 Dose: 6 mg Documented by: Sodium Chloride (Sodium Chloride 0.9% 10 Ml Syringe) 10 ml FLUSH ASDIRECTED PRN PRN Reason: Keep Vein Open Last Admin: 06/12/21 15:08 Dose: 10 ml Documented by: Sodium Chloride (Sodium Chloride 0.9% 2.5 Ml Syringe) 2.5 ml FLUSH ASDIRECTED PRN PRN Reason: Keep Vein Open Last Admin: 06/12/21 15:08 Dose: 2.5 ml Documented by: Sodium Chloride (Sodium Chloride 0.65% Nasal [place] 45 Ml Bottle) 0 ml BRITT Q6H PRN PRN Reason: Congestion Last Admin: 06/14/21 17:43 Dose: 1 ml Documented by: Discontinued Medications Albuterol/Ipratropium (Albuterol/Ipratropium 4 Gm Inhalation [place]) 1 gm INH QID [facility] Last Admin: 06/13/21 00:59 Dose: Not Given Documented by: Albuterol/Ipratropium (Albuterol/Ipratropium 4 Gm Inhalation [place]) 1 gm INH ONETIME ONE Stop: 06/12/21 22:16 Albuterol/Ipratropium (Albuterol/Ipratropium 4 Gm Inhalation [place]) 0 gm INH ONETIME ONE Stop: 06/12/21 22:16 Last Admin: 06/12/21 22:19 Dose: 1 puff Documented by: Azithromycin (Azithromycin 500 Mg Vial) 500 mg IV Q24H [facility] Last Admin: 06/13/21 00:59 Dose: Not Given Documented by: Dexamethasone (Dexamethasone 10 Mg/Ml Sdv) 6 mg IVPUSH ONETIME ONE Stop: 06/12/21 14:53 Last Admin: 06/12/21 15:07 Dose: 6 mg Documented by: Dexamethasone (Dexamethasone 4 Mg Tab) 6 mg PO Q24H [facility]ASH Last Admin: 06/13/21 00:57 Dose: Not Given Documented by: Remdesivir 100 mg/ Sodium (Chloride) 100 mls @ 100 mls/hr IV Q24H [facility]ASH Stop: 06/15/21 17:29 Last Admin: 06/13/21 00:58 Dose: Not Given Documented by: Remdesivir 200 mg/ Sodium (Chloride) 250 mls @ 250 mls/hr IV ONETIME ONE Stop: 06/12/21 16:26 Last Admin: 06/12/21 19:40 Dose: 250 mls/hr Documented by: Ceftriaxone Sodium/Dextrose 1 (gm/ Premix) 50 mls @ 100 mls/hr IV Q24H [facility] Last Admin: 06/13/21 00:58 Dose: Not Given Documented by: Azithromycin 500 mg/ Sodium (Chloride) 250 mls @ 250 mls/hr IV Q24H YASH Last Admin: 06/12/21 22:20 Dose: 250 mls/hr Documented by: Doxycycline Hyclate 100 mg/ (Sodium Chloride) 100 mls @ 100 mls/hr IV Q12H [facility]ASH Last Admin: 06/13/21 13:59 Dose: 100 mls/hr Documented by: Iopamidol (Iopamidol 755 Mg/Ml 500 Ml Multipack Bottle) 100 ml IVPUSH ONETIME ONE Stop: 06/12/21 15:50 Last Admin: 06/12/21 15:50 Dose: 100 ml Documented by: Potassium Chloride (Potassium Chloride 20 Meq Tab.Er) 40 meq PO ONETIME ONE Stop: 06/13/21 14:25 Last Admin: 06/13/21 15:55 Dose: 40 meq Documented by: - Exam Physical Findings Comments:: General: obese young female. In no acute distress. CVS: S1S2 appreciated. RRR lungs: clear bilaterally. No rales pa: soft, non tender. Bowel sounds present ext: no clubbing, cyanosis or edema Neuro: no focal deficits. - Patient Data Lab Results Last 24 hrs: Laboratory Results - last 24 hr 06/15/21 06/15/21 Range/Units 06:21 06:21 WBC 3.42 L (4.0-11.0) K/uL RBC 4.25 L (4.30-5.90) M/uL Hgb 12.3 (12.0-16.0) g/dL Hct 37.9 (36.0-46.0) % MCV 89.2 (80.0-98.0) fL MCH 28.9 (27.0-32.0) pg MCHC 32.5 (31.0-37.0) g/dL RDW Std Deviation 46.1 (28.0-62.0) fl RDW Coeff of Valerie 14 (11.0-15.0) % Plt Count 233 (150-400) K/uL MPV 12.00 (7.40-12.00) fL Neut % (Auto) 72.8 (48.0-80.0) % Lymph % (Auto) 14.9 L (16.0-40.0) % [place] % (Auto) 12.0 (0.0-15.0) % Eos % (Auto) 0.0 (0.0-7.0) % Baso % (Auto) 0.3 (0.0-1.5) % Neut # (Auto) 2.5 (1.4-5.7) K/uL Lymph # (Auto) 0.5 L (0.6-2.4) K/uL [place] # (Auto) 0.4 (0.0-0.8) K/uL Eos # (Auto) 0.0 (0.0-0.7) K/uL Baso # (Auto) 0.0 (0.0-0.1) K/uL Nucleated RBC % 0.0 /100WBC Nucleated RBCs # 0 K/uL Sodium 138 (136-145) mmol/L Potassium 4.1 (3.5-5.1) mmol/L Chloride 102 (98-107) mmol/L Carbon Dioxide 26.5 (21.0-32.0) mmol/L BUN 6 L (7.0-18.0) mg/dL Creatinine 0.5 L (0.6-1.0) mg/dL Est Cr Clr Drug Dosing 149.82 mL/min Estimated GFR (MDRD) > 60.0 ml/min Glucose 140 H (74-106) mg/dL Calcium 8.2 L (8.5-10.1) mg/dL Total Bilirubin 0.5 (0.2-1.0) mg/dL AST 110 H (15-37) IU/L ALT 202 H (14-63) IU/L Alkaline Phosphatase 45 L (46-116) U/L Total Protein 5.9 L (6.4-8.2) g/dL Albumin 2.7 L (3.4-5.0) g/dL Globulin 3.2 (2.6-4.0) g/dL Albumin/Globulin Ratio 0.8 L (0.9-1.6) Result Diagrams: 06/15/21 06:21 06/15/21 06:21 Sepsis Event Note - Evaluation Sepsis Screening Result: No Definite Risk - Focused Exam Vital Signs: Vital Signs Temp Pulse Resp BP BP Pulse Ox Pulse Ox 06/15/21 12:00 92 L 06/15/21 11:00 96.8 F L 72 22 H 120/57 L 92 L 06/15/21 07:00 96.8 F L 72 24 H 120/57 L 92 L 06/15/21 03:49 96.8 F L 72 18 105/53 L 91 L - Problem List Review Problem List Initiated/Reviewed/Updated: Yes - My Orders Last 24 Hours: My Active Orders 06/15/21 15:15 D Dimer [D-DIMER QUANTITATIVE] [COAG] DAILY - Plan Plan:: 26 yo female admitted for COVID-19 with Acute hypoxemic respiratory failure and possible recent coinfection with influenza Continue with oxygen supplementation. Incentive spirometry. Encourage proning. COVID-19: continue remdesivir and dexamethasone. Also on Rocephin and doxycycline. lovenox for DVT prophylaxis Morbid obesity Full code status.
[2021-06-15] MEDS: REMDESIVIR 100 MG in Sodium Chloride 0.9% 100 ML IV SCH (20:24)
[2021-06-15] MEDS: Dexamethasone 4 MG Tab PO SCH (21:46)
[2021-06-15] MEDS: Melatonin 3 MG Tab PO PRN (21:46)
[2021-06-15] MEDS: cefTRIAXone 1 GM in Premix Bag 1 BAG IV SCH (21:47)
[2021-06-16] MEDS: Albuterol/Ipratropium 4 GM Inhalation Spray INH SCH ×4 (00:17→18:43)
[2021-06-16 07:07] LABS: BLOOD UREA NITROGEN,BUN 8 mg/dL (7.0-18.0); CARBON DIOXIDE,CO2 26.6 mmol/L (21.0-32.0); CHLORIDE,CL 102 mmol/L (98-107); GLUCOSE RANDOM 149 mg/dL (74-106); POTASSIUM,K 4.1 mmol/L (3.5-5.1); SODIUM,NA 138 mmol/L (136-145)
[2021-06-16] MEDS: Enoxaparin 40 MG/0.4 ML Syringe SUBCUT SCH ×2 (09:46→21:05)
--- NOTE | 2021-06-16 11:06 | PCM.PN ---
- General Info Date of Service: 06/16/21 Subjective Update: 26-year-old female admitted for COVID-19. Patient is currently on 9 L nasal cannula. Patient is tearful this morning and states she would like to be home for [place] to spend time with her daughter. She continues to perform incentive spirometry. Patient denies fever, chills. She is sitting up in the chair today. - Review of Systems General: Denies: Fever, Chills HEENT: Denies: Headaches Pulmonary: Reports: Cough. Denies: Shortness of Breath Cardiovascular: Denies: Chest Pain, Palpitations Gastrointestinal: Denies: Abdominal Pain, Constipation, Nausea, Vomiting Genitourinary: Denies: Dysuria Musculoskeletal: Denies: Leg Pain Neurological: Denies: Confusion - Patient Data Vitals - Most Recent: Last Vital Signs Temp 96.3 F L 06/16/21 04:00 Pulse 59 L 06/16/21 04:00 Resp 26 H 06/16/21 04:00 BP 119/58 L 06/16/21 04:00 Pulse Ox 95 06/16/21 00:10 Weight - Most Recent: 291 lb 6.4 oz I&O - Last 24 Hours: Intake & Output 06/15/21 06/16/21 06/16/21 22:59 06:59 14:59 Intake Total 610 1250 Balance 610 1250 Lab Results Last 24 Hours: Laboratory Results - last 24 hr 06/15/21 06/16/21 06/16/21 Range/Units 15:38 05:30 05:30 WBC 2.68 L (4.0-11.0) K/uL RBC 4.29 L (4.30-5.90) M/uL Hgb 12.4 (12.0-16.0) g/dL Hct 38.2 (36.0-46.0) % MCV 89.0 (80.0-98.0) fL MCH 28.9 (27.0-32.0) pg MCHC 32.5 (31.0-37.0) g/dL RDW Std Deviation 45.0 (28.0-62.0) fl RDW Coeff of Valerie 14 (11.0-15.0) % Plt Count 260 (150-400) K/uL MPV 12.50 H (7.40-12.00) fL Neut % (Auto) 61.6 (48.0-80.0) % Lymph % (Auto) 25.7 (16.0-40.0) % [place] % (Auto) 12.3 (0.0-15.0) % Eos % (Auto) 0.0 (0.0-7.0) % Baso % (Auto) 0.4 (0.0-1.5) % Neut # (Auto) 1.7 (1.4-5.7) K/uL Lymph # (Auto) 0.7 (0.6-2.4) K/uL [place] # (Auto) 0.3 (0.0-0.8) K/uL Eos # (Auto) 0.0 (0.0-0.7) K/uL Baso # (Auto) 0.0 (0.0-0.1) K/uL Nucleated RBC % 0.0 /100WBC Nucleated RBCs # 0 K/uL D-Dimer, Quantitative 1.07 H (0.0-0.50) mg/L FEU Sodium 138 (136-145) mmol/L Potassium 4.1 (3.5-5.1) mmol/L Chloride 102 (98-107) mmol/L Carbon Dioxide 26.6 (21.0-32.0) mmol/L BUN 8 (7.0-18.0) mg/dL Creatinine 0.5 L (0.6-1.0) mg/dL Est Cr Clr Drug Dosing 149.82 mL/min Estimated GFR (MDRD) > 60.0 ml/min Glucose 149 H (74-106) mg/dL Calcium 8.7 (8.5-10.1) mg/dL Total Bilirubin 0.3 (0.2-1.0) mg/dL AST 70 H (15-37) IU/L ALT 167 H (14-63) IU/L Alkaline Phosphatase 47 (46-116) U/L Total Protein 6.6 (6.4-8.2) g/dL Albumin 2.6 L (3.4-5.0) g/dL Globulin 4.0 (2.6-4.0) g/dL Albumin/Globulin Ratio 0.7 L (0.9-1.6) Med Orders - Current: Current Medications Acetaminophen (Acetaminophen 325 Mg Tab) 650 mg PO Q6H PRN PRN Reason: Pain Last Admin: 06/15/21 10:19 Dose: 650 mg Documented by: Albuterol/Ipratropium (Albuterol/Ipratropium 4 Gm Inhalation [place]) 1 gm INH QID [facility] Last Admin: 06/16/21 06:27 Dose: 1 mdi Documented by: Dexamethasone (Dexamethasone 4 Mg Tab) 6 mg PO Q24H [facility] Last Admin: 06/15/21 21:46 Dose: 6 mg Documented by: Enoxaparin Sodium (Enoxaparin 40 Mg/0.4 Ml Syringe) 40 mg SUBCUT Q12HR [facility] Last Admin: 06/16/21 09:46 Dose: 40 mg Documented by: Ceftriaxone Sodium/Dextrose 1 (gm/ Premix) 50 mls @ 100 mls/hr IV Q24H [facility] Last Admin: 06/15/21 21:47 Dose: 100 mls/hr Documented by: Remdesivir 100 mg/ Sodium (Chloride) 100 mls @ 100 mls/hr IV Q24H [facility] Stop: 06/16/21 21:29 Last Admin: 06/15/21 20:24 Dose: 100 mls/hr Documented by: Melatonin (Melatonin 3 Mg Tab) 6 mg PO BEDTIME PRN PRN Reason: Sleep Last Admin: 06/15/21 21:46 Dose: 6 mg Documented by: Sodium Chloride (Sodium Chloride 0.9% 10 Ml Syringe) 10 ml FLUSH ASDIRECTED PRN PRN Reason: Keep Vein Open Last Admin: 06/12/21 15:08 Dose: 10 ml Documented by: Sodium Chloride (Sodium Chloride 0.9% 2.5 Ml Syringe) 2.5 ml FLUSH ASDIRECTED PRN PRN Reason: Keep Vein Open Last Admin: 06/12/21 15:08 Dose: 2.5 ml Documented by: Sodium Chloride (Sodium Chloride 0.65% Nasal [place] 45 Ml Bottle) 0 ml BRITT Q6H PRN PRN Reason: Congestion Last Admin: 06/14/21 17:43 Dose: 1 ml Documented by: Discontinued Medications Albuterol/Ipratropium (Albuterol/Ipratropium 4 Gm Inhalation [place]) 1 gm INH QID [facility] Last Admin: 06/13/21 00:59 Dose: Not Given Documented by: Albuterol/Ipratropium (Albuterol/Ipratropium 4 Gm Inhalation [place]) 1 gm INH ONETIME ONE Stop: 06/12/21 22:16 Albuterol/Ipratropium (Albuterol/Ipratropium 4 Gm Inhalation [place]) 0 gm INH ONETIME ONE Stop: 06/12/21 22:16 Last Admin: 06/12/21 22:19 Dose: 1 puff Documented by: Azithromycin (Azithromycin 500 Mg Vial) 500 mg IV Q24H [facility] Last Admin: 06/13/21 00:59 Dose: Not Given Documented by: Dexamethasone (Dexamethasone 10 Mg/Ml Sdv) 6 mg IVPUSH ONETIME ONE Stop: 06/12/21 14:53 Last Admin: 06/12/21 15:07 Dose: 6 mg Documented by: Dexamethasone (Dexamethasone 4 Mg Tab) 6 mg PO Q24H [facility] Last Admin: 06/13/21 00:57 Dose: Not Given Documented by: Remdesivir 100 mg/ Sodium (Chloride) 100 mls @ 100 mls/hr IV Q24H [facility] Stop: 06/15/21 17:29 Last Admin: 06/13/21 00:58 Dose: Not Given Documented by: Remdesivir 200 mg/ Sodium (Chloride) 250 mls @ 250 mls/hr IV ONETIME ONE Stop: 06/12/21 16:26 Last Admin: 06/12/21 19:40 Dose: 250 mls/hr Documented by: Ceftriaxone Sodium/Dextrose 1 (gm/ Premix) 50 mls @ 100 mls/hr IV Q24H [facility] Last Admin: 06/13/21 00:58 Dose: Not Given Documented by: Azithromycin 500 mg/ Sodium (Chloride) 250 mls @ 250 mls/hr IV Q24H [facility] Last Admin: 06/12/21 22:20 Dose: 250 mls/hr Documented by: Doxycycline Hyclate 100 mg/ (Sodium Chloride) 100 mls @ 100 mls/hr IV Q12H [facility] Last Admin: 06/13/21 13:59 Dose: 100 mls/hr Documented by: Iopamidol (Iopamidol 755 Mg/Ml 500 Ml Multipack Bottle) 100 ml IVPUSH ONETIME ONE Stop: 06/12/21 15:50 Last Admin: 06/12/21 15:50 Dose: 100 ml Documented by: Potassium Chloride (Potassium Chloride 20 Meq Tab.Er) 40 meq PO ONETIME ONE Stop: 06/13/21 14:25 Last Admin: 06/13/21 15:55 Dose: 40 meq Documented by: - Exam Quality Assessment: Supplemental Oxygen General: Alert, Oriented, Cooperative HEENT: Pupils Equal, Pupils Reactive Neck: Supple Lungs: Decreased Breath Sounds, Wheezing Cardiovascular: Regular Rate, Regular Rhythm GI/Abdominal Exam: Normal Bowel Sounds, Soft, Non-Tender Back Exam: Normal Inspection Extremities: No: Bernabe's Sign, Leg Pain Peripheral Pulses: 2+: Dorsalis Pedis (L), Dorsalis Pedis (R) Skin: Warm, Dry, Intact Neurological: No New Focal Deficit - Patient Data Lab Results Last 24 hrs: Laboratory Results - last 24 hr 06/15/21 06/16/21 06/16/21 Range/Units 15:38 05:30 05:30 WBC 2.68 L (4.0-11.0) K/uL RBC 4.29 L (4.30-5.90) M/uL Hgb 12.4 (12.0-16.0) g/dL Hct 38.2 (36.0-46.0) % MCV 89.0 (80.0-98.0) fL MCH 28.9 (27.0-32.0) pg MCHC 32.5 (31.0-37.0) g/dL RDW Std Deviation 45.0 (28.0-62.0) fl RDW Coeff of Valerie 14 (11.0-15.0) % Plt Count 260 (150-400) K/uL MPV 12.50 H (7.40-12.00) fL Neut % (Auto) 61.6 (48.0-80.0) % Lymph % (Auto) 25.7 (16.0-40.0) % [place] % (Auto) 12.3 (0.0-15.0) % Eos % (Auto) 0.0 (0.0-7.0) % Baso % (Auto) 0.4 (0.0-1.5) % Neut # (Auto) 1.7 (1.4-5.7) K/uL Lymph # (Auto) 0.7 (0.6-2.4) K/uL [place] # (Auto) 0.3 (0.0-0.8) K/uL Eos # (Auto) 0.0 (0.0-0.7) K/uL Baso # (Auto) 0.0 (0.0-0.1) K/uL Nucleated RBC % 0.0 /100WBC Nucleated RBCs # 0 K/uL D-Dimer, Quantitative 1.07 H (0.0-0.50) mg/L FEU Sodium 138 (136-145) mmol/L Potassium 4.1 (3.5-5.1) mmol/L Chloride 102 (98-107) mmol/L Carbon Dioxide 26.6 (21.0-32.0) mmol/L BUN 8 (7.0-18.0) mg/dL Creatinine 0.5 L (0.6-1.0) mg/dL Est Cr Clr Drug Dosing 149.82 mL/min Estimated GFR (MDRD) > 60.0 ml/min Glucose 149 H (74-106) mg/dL Calcium 8.7 (8.5-10.1) mg/dL Total Bilirubin 0.3 (0.2-1.0) mg/dL AST 70 H (15-37) IU/L ALT 167 H (14-63) IU/L Alkaline Phosphatase 47 (46-116) U/L Total Protein 6.6 (6.4-8.2) g/dL Albumin 2.6 L (3.4-5.0) g/dL Globulin 4.0 (2.6-4.0) g/dL Albumin/Globulin Ratio 0.7 L (0.9-1.6) Result Diagrams: 06/16/21 05:30 06/16/21 05:30 Sepsis Event Note - Evaluation Sepsis Screening Result: No Definite Risk - Focused Exam Vital Signs: Vital Signs Temp Pulse Resp BP BP Pulse Ox 06/16/21 04:00 96.3 F L 59 L 26 H 119/58 L 06/16/21 00:10 96.3 F L 67 28 H 106/52 L 95 - Problem List Review Problem List Initiated/Reviewed/Updated: Yes - Plan Plan:: 26 yo female admitted for COVID-19 with Acute hypoxemic respiratory failure and possible recent coinfection with influenza Continue with oxygen supplementation. Incentive spirometry. Encourage proning. COVID-19: continue remdesivir and dexamethasone. Also on Rocephin and doxycycline. lovenox for DVT prophylaxis Morbid obesity Full code status.
[2021-06-16] MEDS: REMDESIVIR 100 MG in Sodium Chloride 0.9% 100 ML IV SCH (21:04)
[2021-06-16] MEDS: Dexamethasone 4 MG Tab PO SCH (21:04)
[2021-06-17] MEDS: Albuterol/Ipratropium 4 GM Inhalation Spray INH SCH ×4 (00:19→17:40)
[2021-06-17 07:20] LABS: BLOOD UREA NITROGEN,BUN 11 mg/dL (7.0-18.0); CHLORIDE,CL 102 mmol/L (98-107); GLUCOSE RANDOM 133 mg/dL (74-106); POTASSIUM,K 4.8 mmol/L (3.5-5.1); SODIUM,NA 140 mmol/L (136-145)
[2021-06-17] MEDS: Enoxaparin 40 MG/0.4 ML Syringe SUBCUT SCH ×2 (08:05→21:29)
--- NOTE | 2021-06-17 13:51 | PCM.PN ---
- General Info Date of Service: 06/17/21 Subjective Update: 26-year-old female admitted for COVID-19. Patient started on baricitinib yesterday. She was weaned down today to 4 L nasal cannula. She continues to perform incentive spirometry. Patient would like to go home, we will reassess tomorrow morning. Patient denies fever, chills. She is sitting up in the chair today. - Review of Systems General: Denies: Fever, Chills Pulmonary: Reports: Shortness of Breath, Cough. Denies: Sputum Cardiovascular: Denies: Chest Pain, Palpitations Gastrointestinal: Denies: Abdominal Pain, Constipation, Diarrhea, Nausea, Vomiting Genitourinary: Denies: Dysuria Musculoskeletal: Denies: Leg Pain - Patient Data Vitals - Most Recent: Last Vital Signs Temp 96.6 F L 06/17/21 07:51 Pulse 76 06/17/21 07:51 Resp 20 06/17/21 07:51 BP 123/72 06/17/21 07:51 Pulse Ox 90 L 06/17/21 07:51 Weight - Most Recent: 291 lb 6.4 oz I&O - Last 24 Hours: Intake & Output 06/16/21 06/17/21 06/17/21 22:59 06:59 14:59 Intake Total 800 1400 Balance 800 1400 Lab Results Last 24 Hours: Laboratory Results - last 24 hr 06/17/21 06/17/21 Range/Units 05:43 05:43 WBC 3.55 L (4.0-11.0) K/uL RBC 4.48 (4.30-5.90) M/uL Hgb 13.0 (12.0-16.0) g/dL Hct 39.8 (36.0-46.0) % MCV 88.8 (80.0-98.0) fL MCH 29.0 (27.0-32.0) pg MCHC 32.7 (31.0-37.0) g/dL RDW Std Deviation 44.4 (28.0-62.0) fl RDW Coeff of Valerie 14 (11.0-15.0) % Plt Count 319 (150-400) K/uL MPV 12.60 H (7.40-12.00) fL Neut % (Auto) 71.0 (48.0-80.0) % Lymph % (Auto) 18.0 (16.0-40.0) % [place] % (Auto) 10.7 (0.0-15.0) % Eos % (Auto) 0.0 (0.0-7.0) % Baso % (Auto) 0.3 (0.0-1.5) % Neut # (Auto) 2.5 (1.4-5.7) K/uL Lymph # (Auto) 0.6 (0.6-2.4) K/uL [place] # (Auto) 0.4 (0.0-0.8) K/uL Eos # (Auto) 0.0 (0.0-0.7) K/uL Baso # (Auto) 0.0 (0.0-0.1) K/uL Nucleated RBC % 0.0 /100WBC Nucleated RBCs # 0 K/uL Sodium 140 (136-145) mmol/L Potassium 4.8 (3.5-5.1) mmol/L Chloride 102 (98-107) mmol/L Carbon Dioxide 26.0 (21.0-32.0) mmol/L BUN 11 (7.0-18.0) mg/dL Creatinine 0.5 L (0.6-1.0) mg/dL Est Cr Clr Drug Dosing 149.82 mL/min Estimated GFR (MDRD) > 60.0 ml/min Glucose 133 H (74-106) mg/dL Calcium 8.4 L (8.5-10.1) mg/dL Total Bilirubin 0.3 (0.2-1.0) mg/dL AST 82 H (15-37) IU/L ALT 182 H (14-63) IU/L Alkaline Phosphatase 57 (46-116) U/L Total Protein 6.2 L (6.4-8.2) g/dL Albumin 2.9 L (3.4-5.0) g/dL Globulin 3.3 (2.6-4.0) g/dL Albumin/Globulin Ratio 0.9 (0.9-1.6) Med Orders - Current: Current Medications Acetaminophen (Acetaminophen 325 Mg Tab) 650 mg PO Q6H PRN PRN Reason: Pain Last Admin: 06/15/21 10:19 Dose: 650 mg Documented by: Albuterol/Ipratropium (Albuterol/Ipratropium 4 Gm Inhalation [place]) 1 gm INH QID [facility] Last Admin: 06/17/21 12:34 Dose: 1 puff Documented by: Baricitinib (Baricitinib 2 Mg Tab) 4 mg PO DAILY [facility] Last Admin: 06/17/21 08:04 Dose: 4 mg Documented by: Dexamethasone (Dexamethasone 4 Mg Tab) 6 mg PO Q24H [facility] Last Admin: 06/16/21 21:04 Dose: 6 mg Documented by: Enoxaparin Sodium (Enoxaparin 40 Mg/0.4 Ml Syringe) 40 mg SUBCUT Q12HR [facility] Last Admin: 06/17/21 08:05 Dose: 40 mg Documented by: Melatonin (Melatonin 3 Mg Tab) 6 mg PO BEDTIME PRN PRN Reason: Sleep Last Admin: 06/15/21 21:46 Dose: 6 mg Documented by: Sodium Chloride (Sodium Chloride 0.9% 10 Ml Syringe) 10 ml FLUSH ASDIRECTED PRN PRN Reason: Keep Vein Open Last Admin: 06/12/21 15:08 Dose: 10 ml Documented by: Sodium Chloride (Sodium Chloride 0.9% 2.5 Ml Syringe) 2.5 ml FLUSH ASDIRECTED PRN PRN Reason: Keep Vein Open Last Admin: 06/12/21 15:08 Dose: 2.5 ml Documented by: Sodium Chloride (Sodium Chloride 0.65% Nasal [place] 45 Ml Bottle) 0 ml BRITT Q6H PRN PRN Reason: Congestion Last Admin: 06/14/21 17:43 Dose: 1 ml Documented by: Discontinued Medications Albuterol/Ipratropium (Albuterol/Ipratropium 4 Gm Inhalation [place]) 1 gm INH QID [facility] Last Admin: 06/13/21 00:59 Dose: Not Given Documented by: Albuterol/Ipratropium (Albuterol/Ipratropium 4 Gm Inhalation [place]) 1 gm INH ONETIME ONE Stop: 06/12/21 22:16 Albuterol/Ipratropium (Albuterol/Ipratropium 4 Gm Inhalation [place]) 0 gm INH ONETIME ONE Stop: 06/12/21 22:16 Last Admin: 06/12/21 22:19 Dose: 1 puff Documented by: Azithromycin (Azithromycin 500 Mg Vial) 500 mg IV Q24H [facility] Last Admin: 06/13/21 00:59 Dose: Not Given Documented by: Dexamethasone (Dexamethasone 10 Mg/Ml Sdv) 6 mg IVPUSH ONETIME ONE Stop: 06/12/21 14:53 Last Admin: 06/12/21 15:07 Dose: 6 mg Documented by: Dexamethasone (Dexamethasone 4 Mg Tab) 6 mg PO Q24H [facility] Last Admin: 06/13/21 00:57 Dose: Not Given Documented by: Remdesivir 100 mg/ Sodium (Chloride) 100 mls @ 100 mls/hr IV Q24H [facility] Stop: 06/15/21 17:29 Last Admin: 06/13/21 00:58 Dose: Not Given Documented by: Remdesivir 200 mg/ Sodium (Chloride) 250 mls @ 250 mls/hr IV ONETIME ONE Stop: 06/12/21 16:26 Last Admin: 06/12/21 19:40 Dose: 250 mls/hr Documented by: Ceftriaxone Sodium/Dextrose 1 (gm/ Premix) 50 mls @ 100 mls/hr IV Q24H [facility] Last Admin: 06/13/21 00:58 Dose: Not Given Documented by: Ceftriaxone Sodium/Dextrose 1 (gm/ Premix) 50 mls @ 100 mls/hr IV Q24H [facility] Last Admin: 06/15/21 21:47 Dose: 100 mls/hr Documented by: Remdesivir 100 mg/ Sodium (Chloride) 100 mls @ 100 mls/hr IV Q24H [facility] Stop: 06/16/21 21:29 Last Admin: 06/16/21 21:04 Dose: 100 mls/hr Documented by: Azithromycin 500 mg/ Sodium (Chloride) 250 mls @ 250 mls/hr IV Q24H [facility] Last Admin: 06/12/21 22:20 Dose: 250 mls/hr Documented by: Doxycycline Hyclate 100 mg/ (Sodium Chloride) 100 mls @ 100 mls/hr IV Q12H [facility] Last Admin: 06/13/21 13:59 Dose: 100 mls/hr Documented by: Iopamidol (Iopamidol 755 Mg/Ml 500 Ml Multipack Bottle) 100 ml IVPUSH ONETIME ONE Stop: 06/12/21 15:50 Last Admin: 06/12/21 15:50 Dose: 100 ml Documented by: Potassium Chloride (Potassium Chloride 20 Meq Tab.Er) 40 meq PO ONETIME ONE Stop: 06/13/21 14:25 Last Admin: 06/13/21 15:55 Dose: 40 meq Documented by: - Exam Quality Assessment: Supplemental Oxygen General: Alert, Oriented, Cooperative, No Acute Distress HEENT: Pupils Equal, Pupils Reactive Neck: Supple, Trachea Midline Lungs: Clear to Auscultation, Decreased Breath Sounds Cardiovascular: Regular Rate, Regular Rhythm GI/Abdominal Exam: Normal Bowel Sounds, Soft, Non-Tender Extremities: Normal Inspection. No: Bernabe's Sign, Leg Pain - Patient Data Lab Results Last 24 hrs: Laboratory Results - last 24 hr 06/17/21 06/17/21 Range/Units 05:43 05:43 WBC 3.55 L (4.0-11.0) K/uL RBC 4.48 (4.30-5.90) M/uL Hgb 13.0 (12.0-16.0) g/dL Hct 39.8 (36.0-46.0) % MCV 88.8 (80.0-98.0) fL MCH 29.0 (27.0-32.0) pg MCHC 32.7 (31.0-37.0) g/dL RDW Std Deviation 44.4 (28.0-62.0) fl RDW Coeff of Valerie 14 (11.0-15.0) % Plt Count 319 (150-400) K/uL MPV 12.60 H (7.40-12.00) fL Neut % (Auto) 71.0 (48.0-80.0) % Lymph % (Auto) 18.0 (16.0-40.0) % [place] % (Auto) 10.7 (0.0-15.0) % Eos % (Auto) 0.0 (0.0-7.0) % Baso % (Auto) 0.3 (0.0-1.5) % Neut # (Auto) 2.5 (1.4-5.7) K/uL Lymph # (Auto) 0.6 (0.6-2.4) K/uL [place] # (Auto) 0.4 (0.0-0.8) K/uL Eos # (Auto) 0.0 (0.0-0.7) K/uL Baso # (Auto) 0.0 (0.0-0.1) K/uL Nucleated RBC % 0.0 /100WBC Nucleated RBCs # 0 K/uL Sodium 140 (136-145) mmol/L Potassium 4.8 (3.5-5.1) mmol/L Chloride 102 (98-107) mmol/L Carbon Dioxide 26.0 (21.0-32.0) mmol/L BUN 11 (7.0-18.0) mg/dL Creatinine 0.5 L (0.6-1.0) mg/dL Est Cr Clr Drug Dosing 149.82 mL/min Estimated GFR (MDRD) > 60.0 ml/min Glucose 133 H (74-106) mg/dL Calcium 8.4 L (8.5-10.1) mg/dL Total Bilirubin 0.3 (0.2-1.0) mg/dL AST 82 H (15-37) IU/L ALT 182 H (14-63) IU/L Alkaline Phosphatase 57 (46-116) U/L Total Protein 6.2 L (6.4-8.2) g/dL Albumin 2.9 L (3.4-5.0) g/dL Globulin 3.3 (2.6-4.0) g/dL Albumin/Globulin Ratio 0.9 (0.9-1.6) Result Diagrams: 06/17/21 05:43 06/17/21 05:43 Sepsis Event Note - Evaluation Sepsis Screening Result: No Definite Risk - Focused Exam Vital Signs: Vital Signs Temp Pulse Resp BP Pulse Ox 06/17/21 07:51 96.6 F L 76 20 123/72 90 L 06/17/21 06:55 18 91 L 06/17/21 05:42 18 90 L 06/17/21 05:09 97.0 F 79 18 109/53 L 93 L - Problem List Review Problem List Initiated/Reviewed/Updated: Yes - My Orders Last 24 Hours: My Active Orders 06/17/21 11:14 Consult to Physical Therapy [PT Evaluation and Treatment] [CONS] Routine - Plan Plan:: 26 yo female admitted for COVID-19 with Acute hypoxemic respiratory failure and possible recent coinfection with influenza Continue with oxygen supplementation. Incentive spirometry. Encourage proning. COVID-19: continue remdesivir and dexamethasone. Started baricitinib. Also on Rocephin and doxycycline. lovenox for DVT prophylaxis Morbid obesity Full code status.
[2021-06-17] MEDS: Dexamethasone 4 MG Tab PO SCH (21:29)
[2021-06-18] MEDS: Albuterol/Ipratropium 4 GM Inhalation Spray INH SCH ×3 (00:47→11:15)
[2021-06-18] MEDS: Enoxaparin 40 MG/0.4 ML Syringe SUBCUT SCH (09:09)
--- NOTE | 2021-06-18 09:22 | PCM.DCSUM1 ---
<Maximiliano Aburto - Last Filed: 06/18/21 11:00> Discharge Summary - Hospital Course Free Text/Narrative:: Patient has gradually responded to typical therapies with bronchodilators and dexamethasone. She is able to walk, eat, drink. She is on oxygen 3 L for comfort. She does have a history of asthma for which she receives routine medications. To the day of discharge she has no chest pain, swelling in her legs, nausea, vomiting, or loose stools. Brief History: 26 yo female with pmh of Asthma who presents with two week history of cough shortness of breath and fatigue. Her mother had recently tested positive for Influenza A and negative for COVID. Patient herself tested positive for influenza but was not tested for COVID. She took five days of tamiflu but did not feel any better. In the ED she is requiring 4 L NC to keep sats. She is positive for COVID and negative for flu. Her CXR reports mid left lung infiltrate Diagnosis: Stroke: No - Discharge Data Discharge Date: 06/18/21 Discharge Disposition: Home, Self-Care 01 Condition: Stable - Referral to Home Health Primary Care Physician: PCP None - Patient Summary/Data Consults: Consultations 06/17/21 11:14 Consult to Physical Therapy [PT Evaluation and Treatment] [CONS] Routine - Patient Instructions Other/Special Instructions: If you experience worsening shortness of breath, swelling or pain in your extremities, chest pain, fever, or any abnormal symp toms please seek immediate medical advice. You have been given 2 inhalers. Use up the Combivent before switching to the albuterol. Please finish dexamethasone. - Discharge Plan *PRESCRIPTION DRUG MONITORING PROGRAM REVIEWED*: Not Applicable *COPY OF PRESCRIPTION DRUG MONITORING REPORT IN PATIENT MARCEL: Not Applicable Prescriptions/Med Rec: Albuterol Sulfate [Albuterol Sulfate Hfa] 8.5 gm IH Q4H #1 hfa.aer.ad MDD 12 INHALATIONS Albuterol/Ipratropium [Combivent Respimat] 4 gm IH Q6H 14 Days #1 aer.w.adap MDD 8 INHALATIO to much caffeineNS dexAMETHasone [Dexamethasone] 6 mg PO DAILY 3 Days #5 tablet MDD 6 mg Home Medications: Home Meds Albuterol Sulfate [Albuterol Sulfate Hfa] 8.5 gm IH Q4H #1 hfa.aer.ad MDD 12 INHALATIONS 06/18/21 [Rx] Albuterol/Ipratropium [Combivent Respimat] 4 gm IH Q6H 14 Days #1 aer.w.adap MDD 8 INHALATIO to much caffeineNS 06/18/21 [Rx] dexAMETHasone [Dexamethasone] 6 mg PO DAILY 3 Days #5 tablet MDD 6 mg 06/18/21 [Rx] Oxygen Therapy Mode: Nasal Cannula Oxygen Flow Rate (L/min): 3 Patient Handouts: Hypoxia, COVID-19 Frequently Asked Questions, COVID-19 Vaccine Information, COVID-19: How to Protect Yourself and Others - [facility] Referrals: Robert Daley MD [Resident] - 07/06/21 11:15 am - General Info Date of Service: 06/18/21 - Review of Systems General: Reports: No Symptoms HEENT: Reports: No Symptoms Pulmonary: Reports: Shortness of Breath Cardiovascular: Reports: Dyspnea on Exertion Gastrointestinal: Reports: No Symptoms Genitourinary: Reports: No Symptoms Musculoskeletal: Reports: No Symptoms Skin: Reports: No Symptoms Neurological: Reports: No Symptoms Psychiatric: Reports: No Symptoms - Patient Data Vitals - Most Recent: Last Vital Signs Temp 95.7 F L 06/18/21 08:19 Pulse 66 06/18/21 08:19 Resp 20 06/18/21 08:19 BP 140/65 06/18/21 08:19 Pulse Ox 90 L 06/18/21 08:19 Weight - Most Recent: 291 lb 6.4 oz I&O - Last 24 hours: Intake & Output 06/17/21 06/18/21 06/18/21 22:59 06:59 14:59 Intake Total 700 1200 Balance 700 1200 Med Orders - Current: Current Medications Acetaminophen (Acetaminophen 325 Mg Tab) 650 mg PO Q6H PRN PRN Reason: Pain Last Admin: 06/15/21 10:19 Dose: 650 mg Documented by: Albuterol/Ipratropium (Albuterol/Ipratropium 4 Gm Inhalation [place]) 1 gm INH QID [facility] Last Admin: 06/18/21 07:02 Dose: 1 puff Documented by: Baricitinib (Baricitinib 2 Mg Tab) 4 mg PO DAILY [facility] Last Admin: 06/18/21 09:09 Dose: 4 mg Documented by: Dexamethasone (Dexamethasone 4 Mg Tab) 6 mg PO Q24H [facility] Last Admin: 06/17/21 21:29 Dose: 6 mg Documented by: Enoxaparin Sodium (Enoxaparin 40 Mg/0.4 Ml Syringe) 40 mg SUBCUT Q12HR [facility] Last Admin: 06/18/21 09:09 Dose: 40 mg Documented by: Melatonin (Melatonin 3 Mg Tab) 6 mg PO BEDTIME PRN PRN Reason: Sleep Last Admin: 06/15/21 21:46 Dose: 6 mg Documented by: Sodium Chloride (Sodium Chloride 0.9% 10 Ml Syringe) 10 ml FLUSH ASDIRECTED PRN PRN Reason: Keep Vein Open Last Admin: 06/12/21 15:08 Dose: 10 ml Documented by: Sodium Chloride (Sodium Chloride 0.9% 2.5 Ml Syringe) 2.5 ml FLUSH ASDIRECTED PRN PRN Reason: Keep Vein Open Last Admin: 06/12/21 15:08 Dose: 2.5 ml Documented by: Sodium Chloride (Sodium Chloride 0.65% Nasal [place] 45 Ml Bottle) 0 ml BRITT Q6H PRN PRN Reason: Congestion Last Admin: 06/14/21 17:43 Dose: 1 ml Documented by: Discontinued Medications Albuterol/Ipratropium (Albuterol/Ipratropium 4 Gm Inhalation [place]) 1 gm INH QID [facility] Last Admin: 06/13/21 00:59 Dose: Not Given Documented by: Albuterol/Ipratropium (Albuterol/Ipratropium 4 Gm Inhalation [place]) 1 gm INH ONETIME ONE Stop: 06/12/21 22:16 Albuterol/Ipratropium (Albuterol/Ipratropium 4 Gm Inhalation [place]) 0 gm INH ONETIME ONE Stop: 06/12/21 22:16 Last Admin: 06/12/21 22:19 Dose: 1 puff Documented by: Azithromycin (Azithromycin 500 Mg Vial) 500 mg IV Q24H [facility] Last Admin: 06/13/21 00:59 Dose: Not Given Documented by: Dexamethasone (Dexamethasone 10 Mg/Ml Sdv) 6 mg IVPUSH ONETIME ONE Stop: 06/12/21 14:53 Last Admin: 06/12/21 15:07 Dose: 6 mg Documented by: Dexamethasone (Dexamethasone 4 Mg Tab) 6 mg PO Q24H [facility] Last Admin: 06/13/21 00:57 Dose: Not Given Documented by: Remdesivir 100 mg/ Sodium (Chloride) 100 mls @ 100 mls/hr IV Q24H [facility] Stop: 06/15/21 17:29 Last Admin: 06/13/21 00:58 Dose: Not Given Documented by: Remdesivir 200 mg/ Sodium (Chloride) 250 mls @ 250 mls/hr IV ONETIME ONE Stop: 06/12/21 16:26 Last Admin: 06/12/21 19:40 Dose: 250 mls/hr Documented by: Ceftriaxone Sodium/Dextrose 1 (gm/ Premix) 50 mls @ 100 mls/hr IV Q24H [facility] Last Admin: 06/13/21 00:58 Dose: Not Given Documented by: Ceftriaxone Sodium/Dextrose 1 (gm/ Premix) 50 mls @ 100 mls/hr IV Q24H [facility] Last Admin: 06/15/21 21:47 Dose: 100 mls/hr Documented by: Remdesivir 100 mg/ Sodium (Chloride) 100 mls @ 100 mls/hr IV Q24H [facility] Stop: 06/16/21 21:29 Last Admin: 06/16/21 21:04 Dose: 100 mls/hr Documented by: Azithromycin 500 mg/ Sodium (Chloride) 250 mls @ 250 mls/hr IV Q24H [facility] Last Admin: 06/12/21 22:20 Dose: 250 mls/hr Documented by: Doxycycline Hyclate 100 mg/ (Sodium Chloride) 100 mls @ 100 mls/hr IV Q12H [facility] Last Admin: 06/13/21 13:59 Dose: 100 mls/hr Documented by: Iopamidol (Iopamidol 755 Mg/Ml 500 Ml Multipack Bottle) 100 ml IVPUSH ONETIME ONE Stop: 06/12/21 15:50 Last Admin: 06/12/21 15:50 Dose: 100 ml Documented by: Potassium Chloride (Potassium Chloride 20 Meq Tab.Er) 40 meq PO ONETIME ONE Stop: 06/13/21 14:25 Last Admin: 06/13/21 15:55 Dose: 40 meq Documented by: - Exam Quality Assessment: Reports: Supplemental Oxygen General: Reports: Alert, Oriented, Cooperative, No Acute Distress HEENT: Reports: Pupils Equal Neck: Reports: Supple Lungs: Reports: Clear to Auscultation Cardiovascular: Reports: Regular Rate GI/Abdominal Exam: Normal Bowel Sounds (Female) Exam: Deferred Back Exam: Reports: Normal Inspection Extremities: Normal Inspection Skin: Reports: Warm, Dry, Intact Neurological: Reports: No New Focal Deficit Psy/Mental Status: Reports: Alert, Normal Affect, Normal Mood <OliviaJosefa - Last Filed: 06/18/21 12:28> Discharge Summary - Hospital Course Modified [place] Scale: No Signif.Disability Despite Sympt.Able to Carry Out Usual Act./Duties Modified [place] Scale Score: 1 - Referral to Home Health Primary Care Physician: PCP None - Patient Summary/Data Consults: Consultations 06/17/21 11:14 Consult to Physical Therapy [PT Evaluation and Treatment] [CONS] Routine - Discharge Summary/Plan Comment DC Time >30 min.: Yes Total # of Minutes for Discharge Time: 45 - Patient Data Vitals - Most Recent: Last Vital Signs Temp 95.7 F L 06/18/21 08:19 Pulse 66 06/18/21 08:19 Resp 20 06/18/21 08:19 BP 140/65 06/18/21 08:19 Pulse Ox 90 L 06/18/21 08:19 I&O - Last 24 hours: Intake & Output 06/17/21 06/18/21 06/18/21 22:59 06:59 14:59 Intake Total 700 1200 Balance 700 1200 Med Orders - Current: Current Medications Acetaminophen (Acetaminophen 325 Mg Tab) 650 mg PO Q6H PRN PRN Reason: Pain Last Admin: 06/15/21 10:19 Dose: 650 mg Documented by: Albuterol/Ipratropium (Albuterol/Ipratropium 4 Gm Inhalation [place]) 1 gm INH QID [facility] Last Admin: 06/18/21 11:15 Dose: 1 puff Documented by: Baricitinib (Baricitinib 2 Mg Tab) 4 mg PO DAILY [facility] Last Admin: 06/18/21 09:09 Dose: 4 mg Documented by: Dexamethasone (Dexamethasone 4 Mg Tab) 6 mg PO Q24H [facility] Last Admin: 06/17/21 21:29 Dose: 6 mg Documented by: Enoxaparin Sodium (Enoxaparin 40 Mg/0.4 Ml Syringe) 40 mg SUBCUT Q12HR [facility] Last Admin: 06/18/21 09:09 Dose: 40 mg Documented by: Melatonin (Melatonin 3 Mg Tab) 6 mg PO BEDTIME PRN PRN Reason: Sleep Last Admin: 06/15/21 21:46 Dose: 6 mg Documented by: Sodium Chloride (Sodium Chloride 0.9% 10 Ml Syringe) 10 ml FLUSH ASDIRECTED PRN PRN Reason: Keep Vein Open Last Admin: 06/12/21 15:08 Dose: 10 ml Documented by: Sodium Chloride (Sodium Chloride 0.9% 2.5 Ml Syringe) 2.5 ml FLUSH ASDIRECTED PRN PRN Reason: Keep Vein Open Last Admin: 06/12/21 15:08 Dose: 2.5 ml Documented by: Sodium Chloride (Sodium Chloride 0.65% Nasal [place] 45 Ml Bottle) 0 ml BRITT Q6H PRN PRN Reason: Congestion Last Admin: 06/14/21 17:43 Dose: 1 ml Documented by: Discontinued Medications Albuterol/Ipratropium (Albuterol/Ipratropium 4 Gm Inhalation [place]) 1 gm INH QID [facility] Last Admin: 06/13/21 00:59 Dose: Not Given Documented by: Albuterol/Ipratropium (Albuterol/Ipratropium 4 Gm Inhalation [place]) 1 gm INH ONETIME ONE Stop: 06/12/21 22:16 Albuterol/Ipratropium (Albuterol/Ipratropium 4 Gm Inhalation [place]) 0 gm INH ONETIME ONE Stop: 06/12/21 22:16 Last Admin: 06/12/21 22:19 Dose: 1 puff Documented by: Azithromycin (Azithromycin 500 Mg Vial) 500 mg IV Q24H [facility] Last Admin: 06/13/21 00:59 Dose: Not Given Documented by: Dexamethasone (Dexamethasone 10 Mg/Ml Sdv) 6 mg IVPUSH ONETIME ONE Stop: 06/12/21 14:53 Last Admin: 06/12/21 15:07 Dose: 6 mg Documented by: Dexamethasone (Dexamethasone 4 Mg Tab) 6 mg PO Q24H [facility] Last Admin: 06/13/21 00:57 Dose: Not Given Documented by: Remdesivir 100 mg/ Sodium (Chloride) 100 mls @ 100 mls/hr IV Q24H [facility] Stop: 06/15/21 17:29 Last Admin: 06/13/21 00:58 Dose: Not Given Documented by: Remdesivir 200 mg/ Sodium (Chloride) 250 mls @ 250 mls/hr IV ONETIME ONE Stop: 06/12/21 16:26 Last Admin: 06/12/21 19:40 Dose: 250 mls/hr Documented by: Ceftriaxone Sodium/Dextrose 1 (gm/ Premix) 50 mls @ 100 mls/hr IV Q24H [facility] Last Admin: 06/13/21 00:58 Dose: Not Given Documented by: Ceftriaxone Sodium/Dextrose 1 (gm/ Premix) 50 mls @ 100 mls/hr IV Q24H [facility] Last Admin: 06/15/21 21:47 Dose: 100 mls/hr Documented by: Remdesivir 100 mg/ Sodium (Chloride) 100 mls @ 100 mls/hr IV Q24H [facility] Stop: 06/16/21 21:29 Last Admin: 06/16/21 21:04 Dose: 100 mls/hr Documented by: Azithromycin 500 mg/ Sodium (Chloride) 250 mls @ 250 mls/hr IV Q24H [facility] Last Admin: 06/12/21 22:20 Dose: 250 mls/hr Documented by: Doxycycline Hyclate 100 mg/ (Sodium Chloride) 100 mls @ 100 mls/hr IV Q12H [facility] Last Admin: 06/13/21 13:59 Dose: 100 mls/hr Documented by: Iopamidol (Iopamidol 755 Mg/Ml 500 Ml Multipack Bottle) 100 ml IVPUSH ONETIME ONE Stop: 06/12/21 15:50 Last Admin: 06/12/21 15:50 Dose: 100 ml Documented by: Potassium Chloride (Potassium Chloride 20 Meq Tab.Er) 40 meq PO ONETIME ONE Stop: 06/13/21 14:25 Last Admin: 06/13/21 15:55 Dose: 40 meq Documented by: - Exam Quality Assessment: Reports: Supplemental Oxygen General: Reports: Alert, Oriented HEENT: Reports: Pupils Equal, Pupils Reactive, Mucous Membr. Moist/[place] Neck: Reports: Supple Lungs: Reports: Clear to Auscultation, Normal Respiratory Effort Cardiovascular: Reports: Regular Rate, Regular Rhythm GI/Abdominal Exam: Non-Tender (Female) Exam: Deferred Rectal (Female) Exam: Deferred Back Exam: Reports: Normal Inspection Extremities: Normal Inspection Skin: Reports: Warm, Dry, Intact Wound/Incisions: Reports: Healing Well Neurological: Reports: No New Focal Deficit Psy/Mental Status: Reports: Alert, Normal Affect, Normal Mood <Tyrone Ruth K - Last Filed: 06/18/21 14:58> Discharge Summary - Hospital Course Free Text/Narrative:: 26 y/o morbidly obese female with a h/o asthma admitted to the hospital with acute hypoxemic respiratory failure due to covid pneumonia. She received dexamethasone, remdesivir, duonebs and incentive spirometry during her stay. She initially required 9 L oxygen to keeps sats > 90% but over time she improved and was able to go home on 2 L NC Discharge instructions Activity: as tolerated Diet: cardiac diet , carb controlled follow up with PCP in 1-2 wks Physical exam: CVS: s1s2 appreciated. rrr lungs: clear with no wheezes pa: obese, soft, non tender. ext: no clubbing, cyanosis or edema neuro: no focal deficits. psych: stable mood and affect. Diagnosis: Stroke: No - Referral to Home Health Primary Care Physician: PCP None - Patient Summary/Data Consults: Consultations 06/17/21 11:14 Consult to Physical Therapy [PT Evaluation and Treatment] [CONS] Routine - Discharge Summary/Plan Comment DC Time >30 min.: Yes - Patient Data Vitals - Most Recent: Last Vital Signs Temp 97.8 F 06/18/21 12:00 Pulse 81 06/18/21 12:00 Resp 18 06/18/21 12:00 BP 131/62 06/18/21 12:00 Pulse Ox 91 L 06/18/21 12:00 I&O - Last 24 hours: Intake & Output 06/17/21 06/18/21 06/18/21 22:59 06:59 14:59 Intake Total 700 1200 Balance 700 1200 Med Orders - Current: Current Medications Discontinued Medications Acetaminophen (Acetaminophen 325 Mg Tab) 650 mg PO Q6H PRN PRN Reason: Pain Last Admin: 06/15/21 10:19 Dose: 650 mg Documented by: Albuterol/Ipratropium (Albuterol/Ipratropium 4 Gm Inhalation [place]) 1 gm INH QID [facility] Last Admin: 06/13/21 00:59 Dose: Not Given Documented by: Albuterol/Ipratropium (Albuterol/Ipratropium 4 Gm Inhalation [place]) 1 gm INH ONETIME ONE Stop: 06/12/21 22:16 Albuterol/Ipratropium (Albuterol/Ipratropium 4 Gm Inhalation [place]) 0 gm INH ONETIME ONE Stop: 06/12/21 22:16 Last Admin: 06/12/21 22:19 Dose: 1 puff Documented by: Albuterol/Ipratropium (Albuterol/Ipratropium 4 Gm Inhalation [place]) 1 gm INH QID [facility] Last Admin: 06/18/21 11:15 Dose: 1 puff Documented by: Azithromycin (Azithromycin 500 Mg Vial) 500 mg IV Q24H [facility] Last Admin: 06/13/21 00:59 Dose: Not Given Documented by: Baricitinib (Baricitinib 2 Mg Tab) 4 mg PO DAILY [facility] Last Admin: 06/18/21 09:09 Dose: 4 mg Documented by: Dexamethasone (Dexamethasone 10 Mg/Ml Sdv) 6 mg IVPUSH ONETIME ONE Stop: 06/12/21 14:53 Last Admin: 06/12/21 15:07 Dose: 6 mg Documented by: Dexamethasone (Dexamethasone 4 Mg Tab) 6 mg PO Q24H [facility] Last Admin: 06/13/21 00:57 Dose: Not Given Documented by: Dexamethasone (Dexamethasone 4 Mg Tab) 6 mg PO Q24H [facility] Last Admin: 06/17/21 21:29 Dose: 6 mg Documented by: Enoxaparin Sodium (Enoxaparin 40 Mg/0.4 Ml Syringe) 40 mg SUBCUT Q12HR [facility] Last Admin: 06/18/21 09:09 Dose: 40 mg Documented by: Remdesivir 100 mg/ Sodium (Chloride) 100 mls @ 100 mls/hr IV Q24H [facility] Stop: 06/15/21 17:29 Last Admin: 06/13/21 00:58 Dose: Not Given Documented by: Remdesivir 200 mg/ Sodium (Chloride) 250 mls @ 250 mls/hr IV ONETIME ONE Stop: 06/12/21 16:26 Last Admin: 06/12/21 19:40 Dose: 250 mls/hr Documented by: Ceftriaxone Sodium/Dextrose 1 (gm/ Premix) 50 mls @ 100 mls/hr IV Q24H [facility] Last Admin: 06/13/21 00:58 Dose: Not Given Documented by: Ceftriaxone Sodium/Dextrose 1 (gm/ Premix) 50 mls @ 100 mls/hr IV Q24H [facility] Last Admin: 06/15/21 21:47 Dose: 100 mls/hr Documented by: Remdesivir 100 mg/ Sodium (Chloride) 100 mls @ 100 mls/hr IV Q24H [facility] Stop: 06/16/21 21:29 Last Admin: 06/16/21 21:04 Dose: 100 mls/hr Documented by: Azithromycin 500 mg/ Sodium (Chloride) 250 mls @ 250 mls/hr IV Q24H [facility] Last Admin: 06/12/21 22:20 Dose: 250 mls/hr Documented by: Doxycycline Hyclate 100 mg/ (Sodium Chloride) 100 mls @ 100 mls/hr IV Q12H [facility] Last Admin: 06/13/21 13:59 Dose: 100 mls/hr Documented by: Iopamidol (Iopamidol 755 Mg/Ml 500 Ml Multipack Bottle) 100 ml IVPUSH ONETIME ONE Stop: 06/12/21 15:50 Last Admin: 06/12/21 15:50 Dose: 100 ml Documented by: Melatonin (Melatonin 3 Mg Tab) 6 mg PO BEDTIME PRN PRN Reason: Sleep Last Admin: 06/15/21 21:46 Dose: 6 mg Documented by: Potassium Chloride (Potassium Chloride 20 Meq Tab.Er) 40 meq PO ONETIME ONE Stop: 06/13/21 14:25 Last Admin: 06/13/21 15:55 Dose: 40 meq Documented by: Sodium Chloride (Sodium Chloride 0.9% 10 Ml Syringe) 10 ml FLUSH ASDIRECTED PRN PRN Reason: Keep Vein Open Last Admin: 06/12/21 15:08 Dose: 10 ml Documented by: Sodium Chloride (Sodium Chloride 0.9% 2.5 Ml Syringe) 2.5 ml FLUSH ASDIRECTED PRN PRN Reason: Keep Vein Open Last Admin: 06/12/21 15:08 Dose: 2.5 ml Documented by: Sodium Chloride (Sodium Chloride 0.65% Nasal [place] 45 Ml Bottle) 0 ml BRITT Q6H PRN PRN Reason: Congestion Last Admin: 06/14/21 17:43 Dose: 1 ml Documented by:
[2021-06-18 13:21] VITALS: BP 131/62; PULSE 81
== END 2021-06-18 12:25 | disposition home or self-care (01) | DRG 137 ==
LOC: MW.ED 12:29 → MW.MS 16:37
PROVIDERS: ADMIT Internal Medicine; ATTEND Internal Medicine
PROC: 8E0ZXY6 Isolation (ICD-10-PCS; principal; 2021-06-12)
PROC: 3E0333Z Introduction of Anti-inflammatory into Peripheral Vein, Percutaneous Approach (ICD-10-PCS; 2021-06-12)
PROC: XW033E5 Introduction of Remdesivir Anti-infective into Peripheral Vein, Percutaneous Approach, New Technology Group 5 (ICD-10-PCS; 2021-06-12)
PROC: XW0DXM6 Introduction of Baricitinib into Mouth and Pharynx, External Approach, New Technology Group 6 (ICD-10-PCS; 2021-06-18)
DX: U07.1 COVID-19 (principal); J96.01 Acute respiratory failure with hypoxia; J12.82 Pneumonia due to coronavirus disease 2019; Z68.43 Body mass index [BMI] 50.0-59.9, adult; J45.909 Unspecified asthma, uncomplicated; E66.01 Morbid (severe) obesity due to excess calories
CPT/HCPCS: 0240U; 36415; 71045; 71045-26; 71275; 71275-26; 80053; 83605; 83880; 84145; 84484; 85025; 85379; 86140; 93005; 94640; 96374; 97161-GP; 99285-25; A9270-GY; J0456; J0696; J1100; J1650; J3490; J7050; J8540; Q9967

== ENCOUNTER 2021-09-20 16:36 | Emergency (ER) | payer BC ==
[2021-09-20] MEDS ORDERED: Sodium Chloride 0.9% 2.5 ML Syringe FLUSH PRN (16:56)
[2021-09-20] MEDS ORDERED: Ketorolac 30 MG/ML SDV IVPUSH ONE (16:56)
[2021-09-20] MEDS ORDERED: Sodium Chloride 0.9% 10 ML Syringe FLUSH PRN (16:56)
[2021-09-20 17:55] LABS: BLOOD UREA NITROGEN,BUN 10 mg/dL (7.0-18.0); CARBON DIOXIDE,CO2 26.6 mmol/L (21.0-32.0); CHLORIDE,CL 106 mmol/L (98-107); GLUCOSE RANDOM 105 mg/dL (74-106); POTASSIUM,K 3.8 mmol/L (3.5-5.1); SODIUM,NA 141 mmol/L (136-145)
[2021-09-20] MEDS ORDERED: Iopamidol 755 MG/ML 500 ML Multipack Bottle IVPUSH ONE (18:34)
[2021-09-20] MEDS ORDERED: Orphenadrine 60 MG/2 ML Inj IM ONE (19:13)
[2021-09-20 19:48] VITALS: BP 119/46; PULSE 57
== END 2021-09-20 19:48 | disposition home or self-care (01) ==
LOC: MW.ED 16:36
DX: M62.830 Muscle spasm of back (principal); M54.6 Pain in thoracic spine; J45.909 Unspecified asthma, uncomplicated; E66.9 Obesity, unspecified; Z68.43 Body mass index [BMI] 50.0-59.9, adult; Z88.1 Allergy status to other antibiotic agents
CPT/HCPCS: 36415; 71275; 80053; 83735; 84484; 85025; 85610; 93005; 96372; 96374; 99284; J1885; J2360; Q9967

== ENCOUNTER 2021-12-30 20:53 | Emergency (ER) | payer BC ==
[2021-12-30] MEDS ORDERED: Lactated Ringers 1,000 ML IV STA (22:44)
[2021-12-31 01:16] LABS: CARBON DIOXIDE,CO2 24.7 mmol/L (21.0-32.0); POTASSIUM,K 3.2 mmol/L (3.5-5.1)
[2021-12-31] MEDS ORDERED: Potassium Chloride 10% 20 MEQ/15 ML Soln 30 ML UD Cup PO ONE (01:24)
[2021-12-31 02:59] VITALS: BP 109/41; PULSE 56
== END 2021-12-31 01:34 | disposition home or self-care (01) ==
LOC: MW.ED 20:53
DX: R55 Syncope and collapse (principal); E66.9 Obesity, unspecified; Z68.42 Body mass index [BMI] 45.0-49.9, adult; Z86.16 Personal history of COVID-19; Z88.1 Allergy status to other antibiotic agents; Z88.8 Allergy status to other drugs, medicaments and biological substances
CPT/HCPCS: 36415; 71045; 80053; 82607; 83735; 84443; 85025; 93005; 96360; 99284; A9270; J7120; 93010

== ENCOUNTER 2023-02-17 09:39 | Emergency (ER) | payer BC ==
[~2023-02-17 09:39] MED LIST: Amiodarone 150 MG/3 ML SDV IVPUSH ONE; EPINEPHrine 1:10,000 1 MG/10 ML Syringe IVPUSH ONE; Sodium Chloride 0.9% 1,000 ML IV ONE
[2023-02-17] MEDS ORDERED: EPINEPHrine 1:10,000 1 MG/10 ML Syringe IVPUSH ONE ×4 (09:42→09:57)
[2023-02-17] MEDS ORDERED: Sodium Bicarbonate 8.4% 50 MEQ/50 ML Syringe IVPUSH ONE (09:44)
[2023-02-17] MEDS ORDERED: Calcium Chloride 10% 1 GM/10 ML Syringe IVPUSH ONE (09:48)
[2023-02-17] MEDS ORDERED: Naloxone 0.4 MG/ML SDV IVPUSH ONE ×3 (09:49→09:59)
[2023-02-17 10:18] VITALS: BP 0/0; PULSE 0
== END 2023-02-17 15:15 | disposition expired ==
LOC: MW.ED 09:39
DX: I46.9 Cardiac arrest, cause unspecified (principal); J45.909 Unspecified asthma, uncomplicated; E66.9 Obesity, unspecified; Z68.39 Body mass index [BMI] 39.0-39.9, adult; Z86.16 Personal history of COVID-19; Z88.1 Allergy status to other antibiotic agents; Z88.8 Allergy status to other drugs, medicaments and biological substances; Z79.899 Other long term (current) drug therapy
CPT/HCPCS: 92950; 96374; 96375; 99285; J0171; J0282; J2310; J7030; 31500; J3490